=== PATIENT | female | born 1940 | race Caucasian/White ===

== ENCOUNTER → 2016-09-22 | Outpatient (CLI) | payer OTHER ==
[~2016-09-22] MED LIST: ALBU1AER9 PO; ALLO100T PO; AMOX500C3 PO; ASPCH81X PO; CLR10 PO; CRAN1CAP15 PO; FRS/80 PO; IPRASOL4 INH; LORA-741 PO; MECL1TAB42 PO; METO50TA16 PO; MULT-506 PO; NRN/300 PO; NYST100010 TOP; OMEP20CA9 PO; OXYC1TAB3 PO; OXYC7.5T78 PO; POTA-331 PO; TRAM-453 PO
--- NOTE | 2016-09-22 14:59 | DIAGNOSTIC IMAGING REPORT ---
ARTERIAL DOPPLER ULTRASOUND LOWER EXTREMITIES BILATERAL CLINICAL HISTORY: R09.89 Weak or absent pulse claudication COMPARISON STUDY: No previous studies for comparison. FINDINGS: Brachial arm systolic pressures are 153 mmHg on the right and 1 37 mmHg on the left. Posterior tibial systolic pressures are 160 mmHg in the right and 1 to 55 mmHg in the left. Dorsalis pedis systolic pressures are 171 mmHg the right and 162 mmHg on the left. This reveals normal ankle arm indices of 1.1 bilaterally. On the right there is triphasic flow within the common femoral artery. There is biphasic flow within the superficial femoral artery. There is biphasic flow within the right popliteal artery. There is triphasic flow within the anterior tibial, and biphasic flow within the posterior tibial, and monophasic flow within the peroneal. On the left there is triphasic flow within the common femoral superficial femoral and popliteal arteries. There is biphasic flow within the anterior tibial posterior tibial and peroneal arteries. No high velocity jets are visualized. IMPRESSION: No ultrasonographic evidence of lower extremity arterial stenosis. Ankle arm indices of 1.1 bilaterally. Electronically signed by: Se Mesa M.D. 09/22/2016 2:57 PM Dictated Date/Time: 09/22/2016 2:49 PM
== END | disposition home or self-care (01) ==
LOC: C.ULTR 13:04
PROVIDERS: ATTEND Internal Medicine
DX: R09.89 Other specified symptoms and signs involving the circulatory and respiratory systems (principal)

== ENCOUNTER → 2017-04-26 | Outpatient (CLI) | payer OTHER ==
[2017-04-26 17:23] LABS: HEMATOCRIT 39.4 % (37-47); MEAN CELL VOLUME 92.9 fL (80-100); MEAN CORPUSCULAR HEMOGLOBIN 30.7 pg (25-34); MEAN PLATELET VOLUME 10.2 fL (7.4-10.4); PLATELET COUNT 123 K/uL (130-400); RED BLOOD COUNT 4.24 M/uL (4.2-5.4); WHITE BLOOD COUNT 6.97 K/uL (4.8-10.8)
[2017-04-26 17:43] LABS: ALT/SGPT 22 U/L (12-78); BLOOD UREA NITROGEN 25 mg/dl (7-18); BUN/CREATININE RATIO 18.8 (10-20); CALCIUM 9.2 mg/dl (8.5-10.1); CARBON DIOXIDE 29 mmol/L (21-32); CHLORIDE 105 mmol/L (98-107); CHOLESTEROL 196 mg/dl (0-200); GLUCOSE 88 mg/dl (70-99); POTASSIUM 4.3 mmol/L (3.5-5.1); SODIUM 141 mmol/L (136-145); URIC ACID 5.1 mg/dl (2.6-7.2)
[2017-04-26 17:54] LABS: ALB/GLOB RATIO 1.2 (0.9-2); ALKALINE PHOSPHATASE 89 U/L (45-117); AST/SGOT 29 U/L (15-37); CHOLESTEROL/HDL RATIO 3.2; HDL CHOLESTEROL 61 mg/dl; LDL CHOLESTEROL CALCULATED 110 mg/dl; TRIGLYCERIDES 127 mg/dl (0-150); VERY LOW DENSITY LIPOPROT CALC 25 mg/dl
[2017-04-27 07:09] LABS: ESTIMATED AVERAGE GLUCOSE 105 mg/dl; HA1C FLAG Normal (Normal)
== END | disposition home or self-care (01) ==
LOC: C.LABBFT 13:25
PROVIDERS: ATTEND Internal Medicine
DX: M10.9 Gout, unspecified (principal); E55.9 Vitamin D deficiency, unspecified; I38 Endocarditis, valve unspecified; I48.91 Unspecified atrial fibrillation; R73.01 Impaired fasting glucose

== ENCOUNTER → 2017-05-11 | Outpatient (CLI) | payer OTHER ==
[2017-05-11 17:26] LABS: HEMATOCRIT 39.8 % (37-47); MEAN CELL VOLUME 91.7 fL (80-100); MEAN CORPUSCULAR HEMOGLOBIN 30.2 pg (25-34); MEAN CORPUSCULAR HGB CONC 32.9 g/dl (32-36); MEAN PLATELET VOLUME 9.5 fL (7.4-10.4); PLATELET COUNT 160 K/uL (130-400); RED BLOOD COUNT 4.34 M/uL (4.2-5.4); WHITE BLOOD COUNT 8.44 K/uL (4.8-10.8)
== END | disposition home or self-care (01) ==
LOC: C.LABPVFM 14:43
PROVIDERS: ATTEND Physician Assistant Medical
DX: D69.6 Thrombocytopenia, unspecified (principal)

== ENCOUNTER → 2017-11-12 | Outpatient (CLI) | payer OTHER ==
[2017-11-12 12:33] LABS: BASO % 0.3 %; BASO ABS # 0.02 K/uL (0-0.2); EOS % 2.4 %; EOS ABS # 0.19 K/uL (0-0.5); HEMATOCRIT 42.3 % (37-47); HEMOGLOBIN 13.7 g/dL (12.0-16.0); IG# 0.02 K/uL (0.00-0.02); LYMPH ABS # 3.12 K/uL (1.2-3.4); MEAN CELL VOLUME 93.4 fL (80-100); MEAN CORPUSCULAR HEMOGLOBIN 30.2 pg (25-34); MEAN CORPUSCULAR HGB CONC 32.4 g/dl (32-36); MEAN PLATELET VOLUME 9.6 fL (7.4-10.4); MONO % 10.4 %; MONO ABS # 0.83 K/uL (0.11-0.59); NEUT % 47.6 %; NEUT ABS # 3.81 K/uL (1.4-6.5); PLATELET COUNT 158 K/uL (130-400); RED CELL DISTRIBUTION WIDTH CV 14.3 % (11.5-14.5); RED CELL DISTRIBUTION WIDTH SD 48.4 fL (36.4-46.3); WHITE BLOOD COUNT 7.99 K/uL (4.8-10.8)
[2017-11-12 13:17] LABS: ALBUMIN 4.1 gm/dl (3.4-5.0); ALT/SGPT 32 U/L (12-78); AST/SGOT 29 U/L (15-37); BLOOD UREA NITROGEN 25 mg/dl (7-18); CALCIUM 8.9 mg/dl (8.5-10.1); CARBON DIOXIDE 27 mmol/L (21-32); CHOLESTEROL 148 mg/dl (0-200); CREATININE 1.24 mg/dl (0.60-1.20); GLUCOSE 103 mg/dl (70-99); POTASSIUM 3.6 mmol/L (3.5-5.1); SODIUM 140 mmol/L (136-145)
[2017-11-12 13:28] LABS: ALKALINE PHOSPHATASE 99 U/L (45-117); LDL CHOLESTEROL CALCULATED 63 mg/dl; TOTAL PROTEIN 7.2 gm/dl (6.4-8.2)
[2017-11-12 13:33] LABS: HEMOGLOBIN A1C 5.6 % (4.5-5.6)
== END | disposition home or self-care (01) ==
LOC: C.LABPVFM 18:23
PROVIDERS: ATTEND Internal Medicine
DX: E55.9 Vitamin D deficiency, unspecified (principal); R73.01 Impaired fasting glucose; E78.5 Hyperlipidemia, unspecified; I10 Essential (primary) hypertension

== ENCOUNTER 2021-07-05 16:06 | Inpatient (IN) ==
--- NOTE | 2021-07-05 18:09 | Emergency Department Note ---
Impression & Plan CHF (congestive heart failure), Leg swelling, Localized swelling of both lower legs ED Provider Note NAME: CHARLOTTE WHITTEN AGE: 81 SEX: F : 1940 ARRIVES VIA: Walk-In INFORMANT: Patient, ED PROVIDER(S): Saji Chavez MD Chief Complaint: Bilateral leg swelling HPI: Patient does present with concern for bilateral leg swelling which appears to be worsened over the last several days but has been ongoing for several weeks. The patient does follow with Dr. Anand as well as Andree lane with cardiology. They called and stated the patient did have the worsening leg swelling and they were to stop their Lasix and to be started on Bumex. The patient did take her furosemide today but is not picked up the Bumex. Patient denies any current chest pains or shortness of breath. Patient is a non-smoker. No prior history of DVT or PE. Patient has had some weeping from the bilateral lower extremities. The son at bedside states that he believes that her weight has continued to trend down for the last several weeks but seem to be approximate pound today. The patient does primarily sit in a lift chair all day as the patient is unable to lie flat secondary to history of a bad back. She does seem to sit more upright and is unsure as to whether not laying back may cause some increasing shortness of breath. Patient denies any fevers or chills. Patient has any chest pains or active shortness of breath. Patient is vaccinated for COVID-19. They were referred here into the department today by cardiology for likely IV diuretics. ROS: See HPI for pertinent positives and negatives. A total of 10 systems were reviewed and otherwise negative. Past medical history: See below Surgical history: See below Social history: See below Physical Exam: GENERAL: NAD, wearing glasses, wearing a mask, non-toxic. Hard of hearing. EYE EXAM: Normal conjunctiva. PERRL, no anisocoria and EOM's grossly intact w/o pain. NECK: Supple, no nuchal rigidity, no adenopathy, non-tender. No signs of meningismus. LUNGS: Clear to auscultation. Normal chest wall mechanics. HEART: Irregularly irregular, systolic ejection murmur noted. ABDOMEN: Abdomen soft, non-tender, normo-active bowel sounds, no masses, no re bound or guarding. BACK: No CVA TTP. SKIN: No rashes and no bruising. UPPER EXTREMITIES: Upper extremities are grossly normal. LOWER EXTREMITIES: Grossly normal, 1-2+ bilateral lower extremity edema with bandage over left lateral and right medial lower extremities, no cellulitic changes or fluctuance or crepitus. Compartments are soft neurovascular intact distally. NEURO EXAM: A&O x3, cranial nerves II-XII grossly intact, normal speech, moves all 4 extremities on command w/o issue. Differential diagnoses: Reactive airway disease, pneumonia, pneumothorax, COPD, CHF, infections, cardiac ischemia, pulmonary embolism, musculoskeletal, gastrointestinal, as well as other pathologies. Course: Patient was seen and evaluated the bedside. Full history physical exam was performed. EKG interpreted by me Dawson erazo, rate of 76 intermittent pacer spikes, left axis deviation, left bundle branch block. No other sgarbossa criteria. Imaging Studies: See Below Cardiac monitoring: An order was placed for continuous cardiac monitoring. The monitor shows a rate of 75 with irregular irregular rhythm. MDM: Patient was seen due to concern for worsening leg swelling. The patient may have an element of orthopnea as the patient is unable to tolerate laying flat even in her chair. Blood work shows a normal white count and hemoglobin. The patient does have thrombocytopenia. Kidney function is at 2.7. This is at virtual baseline. Patient's magnesium is slightly low. Bilirubin is slightly elevated. BNP is elevated. The patient was ordered 2 of Bumex and Vivas catheter. I did inform the patient and her son with the plan of care. I did speak the on-call hospitalist and the patient was admitted to the medicine service the patient was admitted by Dr. Styles. 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 Brother Myocardial infarction Father Myocardial infarction Other No family history of adverse response to anesthesia No family history of bleeding disorder Denies family history of Ovarian cancer Prostate cancer Breast cancer Colorectal cancer Social History Smoking Status: Never smoker Second Hand Exposure: No; Hx Alcohol Use: No Hx Substance Use: No Preferred Language: Swazi Communication Ability: Effective Visual Impairment: No Limitations Hearing Ability: Use of Hearing Aid Press Writer Required: No Beliefs That Will Affect Care: None marital status: Current Living Situation: Alone current occupational status: retired current occupation: was a homemaker Feels Safe at Home: Yes Childhood Exposure to Second-Hand Smoke: No Dental Care, Regularly: No Physical Activity Frequency: Does not Exercise Seatbelt Use: never Sunscreen Use: No Assistive Devices: Cane, Denture - Upper, Denture - Lower and Glasses Allergies Allergies Allergy/AdvReac Type Severity Reaction Status Date / Time erythromycin base Allergy Mild Unknown Verified 06/15/21 14:14 doxycycline Allergy Unknown Unknown Verified 06/15/21 14:14 amoxicillin Allergy Verified 06/15/21 14:14 pregabalin [From Lyrica] Allergy Visual Verified 06/15/21 14:14 disturbance Home Meds Home Medications Medication Instructions Recorded Confirmed atorvastatin 40 mg tablet 40 mg PO QPM 04/25/18 07/05/21 allopurinol 100 mg tablet 200 mg PO QAM 07/05/21 07/05/21 cetirizine 10 mg tablet (Zyrtec) 10 mg PO DAILY 07/05/21 07/05/21 omeprazole 20 mg capsule,delayed 20 mg PO QAM 07/05/21 07/05/21 release potassium chloride 10 mEq 20 meq PO BID 07/05/21 07/05/21 tablet,extended release (Klor-Con) Previous Rx's Medication Instructions Recorded baclofen 10 mg tablet 10 mg PO TID PRN #30 tab 06/07/20 tramadol 50 mg tablet 50 mg PO TID PRN #120 tab 10/08/20 ergocalciferol (vitamin D2) 1,250 50,000 unit PO .COMPLEX #4 cap 10/21/20 mcg (50,000 unit) capsule (Vitamin D2) metoprolol tartrate 100 mg tablet 100 mg PO BID #180 tab 05/05/21 albuterol sulfate 90 mcg/actuation 2 puff INHALATION Q6H PRN #6.7 gm 05/25/21 aerosol inhaler ipratropium 0.5 mg-albuterol 3 mg 3 ml INHALATION Q8H PRN #180 ml 05/25/21 (2.5 mg base)/3 mL nebulization soln meclizine 25 mg tablet 25 mg PO TID PRN #30 tab 05/25/21 apixaban 2.5 mg tablet (Eliquis) 2.5 mg PO BID #60 tab 06/01/21 nystatin 100,000 unit/gram topical 1 applic TOPICAL TID #60 g 06/01/21 powder Hospital Bed Home[facility] ([facility] ea 06/02/21 Bed) lorazepam 0.5 mg tablet 0.5 mg PO BID PRN #60 tab 06/21/21 levofloxacin 250 mg tablet 250 mg PO Q48H 10 Days #5 tab 06/28/21 oxycodone 5 mg tablet 5 - 10 mg PO Q4H PRN #180 tab MDD 06/29/21 6 tabs in 24 hours bumetanide 2 mg tablet 4 mg PO BID #120 tab 07/05/21 Results & Data (ED) Vital Signs Vital Signs - 24 hr 07/05/21 16:17 07/05/21 18:15 07/05/21 18:17 Temperature 36.7 C Temperature Source Skin Pulse Rate 71 Pulse Rate [Apical] 67 Pulse Rhythm [Apical] Irregular Respiratory Rate 22 18 Respiratory Effort / Characteristics Non-Labored Spontaneous Respiratory Depth Normal Respiratory Pattern Regular Blood Pressure 101/62 Blood Pressure [Right Arm] 109/64 Blood Pressure Mean 75 Blood Pressure Mean [Right Arm] 79 Blood Pressure Position [Right Arm] Sitting Pulse Oximetry 96 98 94 Oxygen Delivery Method Room Air Room Air Room Air Sepsis Recent Fever Within 48 Hours No Sepsis New/Unexplained Change in Mental Status N/A Sepsis Action Taken by Nursing No Action Required 07/05/21 21:02 07/05/21 22:22 Temperature 36.8 C Temperature Source Oral Pulse Rate Pulse Rate [Apical] 71 71 Pulse Rhythm [Apical] Regular Respiratory Rate 24 21 Respiratory Effort / Characteristics Non-Labored Spontaneous Non-Labored Spontaneous Respiratory Depth Normal Normal Respiratory Pattern Regular Regular Blood Pressure Blood Pressure [Right Arm] 119/52 L 114/65 Blood Pressure Mean Blood Pressure Mean [Right Arm] 74 81 Blood Pressure Position [Right Arm] Sitting Lying Pulse Oximetry 93 94 Oxygen Delivery Method Room Air Room Air Sepsis Recent Fever Within 48 Hours Sepsis New/Unexplained Change in Mental Status Sepsis Action Taken by Halfway Medications Current Medication List: was personally reviewed by me Laboratory Data Attestation: I reviewed the patient's lab results. Result diagrams: 07/05/21 18:15 07/05/21 18:15 Lab Results 07/05/21 07/05/21 07/05/21 Range/Units 18:15 18:15 22:14 WBC 6.33 (4.8-10.8) K/uL RBC 4.06 L (4.2-5.4) M/uL Hgb 12.9 (12.0-16.0) g/dL Hct 41.2 (37-47) % MCV 101.5 H (80-100) fL MCH 31.8 (25-34) pg MCHC 31.3 L (32-36) g/dL RDW Std Deviation 59.7 H (36.4-46.3) fL RDW Coeff of Annaeblle 16.1 H (11.5-14.5) % Plt Count 76 L (130-400) K/uL MPV 10.8 H (7.4-10.4) fL Immature Gran % (Auto) 0.2 % Neut % (Auto) 65.6 % Lymph % (Auto) 21.8 % Hyde % (Auto) 10.9 % Eos % (Auto) 1.3 % Baso % (Auto) 0.2 % Neut # (Auto) 4.16 (1.4-6.5) K/uL Lymph # (Auto) 1.38 (1.2-3.4) K/uL Hyde # (Auto) 0.69 H (0.11-0.59) K/uL Eos # (Auto) 0.08 (0-0.5) K/uL Baso # (Auto) 0.01 (0-0.2) K/uL Immature Gran # (Auto) 0.01 (0.00-0.02) K/uL Platelet Estimate Decreased L (Normal) Polychromasia 1+ Ovalocytes 1+ Sodium 141 (136-145) mmol/L Potassium 3.8 (3.5-5.1) mmol/L Chloride 102 (98-107) mmol/L Carbon Dioxide 35 H (21-32) mmol/L Anion Gap 4.0 (3-11) BUN 51 H (7-18) mg/dl Creatinine 2.71 H (0.6-1.2) mg/dl Est Cr Clr Drug Dosing Not Reportable Est GFR ( Amer) 18.1 ml/min Est GFR (Non-Af Amer) 15.6 ml/min BUN/Creatinine Ratio 18.7 (10-20) Glucose 117 H (70-99) mg/dl Calcium 9.6 (8.5-10.1) mg/dl Magnesium 1.6 L (1.8-2.4) mg/dl Total Bilirubin 3.4 H (0.2-1) mg/dl AST 24 (15-37) U/L ALT 17 (12-78) Alkaline Phosphatase 100 (45-117) U/L Troponin I 0.029 (0-0.045) ng/ml NT-Pro-B Natriuret Pep 6353 H (0-1800) pg/ml Total Protein 7.2 (6.4-8.2) gm/dl Albumin 3.4 (3.4-5.0) gm/dl Globulin 3.8 (2.5-4.0) gm/dl Albumin/Globulin Ratio 0.9 (0.9-2) SARS-CoV-2, RNA, NAAT NEGATIVE (NEGATIVE) Administered Medications Discontinued Medications Bumetanide 2 mg/ Syringe 8 mls @ 4 mls/min IV ONE ONE Stop: 07/05/21 19:28 Last Admin: 07/05/21 20:54 Dose: 4 mls/min Documented by: [id number] Imaging Data Radiologist's Impression: Chest X-Ray 07/05/21 18:25 XR chest 1V portable CLINICAL HISTORY: Dyspnea COMPARISON STUDY: Chest radiograph May 28, 2021. FINDINGS: Dual lead left subclavian pacemaker, median sternotomy wires and cholecystectomy clips are noted. Moderate cardiomegaly is unchanged. No evidence for pulmonary edema. No pneumothorax is present. There is no consolidation to suggest pneumonia. There is no definite evidence for a pleural effusion. IMPRESSION: No acute cardiopulmonary findings. Cardiomegaly. ACT 112: Negative or not required by law. Electronically signed by: Xavier Terry M.D. 07/05/2021 6:44 PM Discharge Plan Visit Data Chief Complaint: Swelling/Edema to Extremity Stated Complaint: LEGS SWOLLEN, POSS FLUID IN LEGS, DR REFERRED ED Provider: Saji Chavez Discharge Problem: CHF (congestive heart failure), Leg swelling, Localized swelling of both lower legs Forms Stand Alone Forms: [employer] Prescriptions Prescriptions: No Action baclofen 10 mg tablet 10 mg PO TID PRN (Reason: leg cramping) Qty: 30 RF: 0 ergocalciferol (vitamin D2) [Vitamin D2] 1,250 mcg (50,000 unit) capsule 50,000 unit PO .COMPLEX Qty: 4 RF: 11 meclizine 25 mg tablet 25 mg PO TID PRN (Reason: dizziness) Qty: 30 RF: 1 albuterol sulfate 90 mcg/actuation HFA aerosol inhaler 2 puff INHALATION Q6H PRN (Reason: Wheezing) Qty: 6.7 RF: 3 ipratropium-albuterol 0.5 mg-3 mg(2.5 mg base)/3 mL solution for nebulization 3 ml INHALATION Q8H PRN (Reason: shortness of breath) Qty: 180 RF: 11 nystatin 100,000 unit/gram powder 1 applic topical TID Qty: 60 RF: 5 (DME) Hospital Bed Misc See Rx Instructions .Route Qty: 1 RF: 0 lorazepam 0.5 mg tablet 0.5 mg PO BID PRN (Reason: anxiety) Qty: 60 RF: 5 levofloxacin 250 mg tablet 250 mg PO Q48H 10 Days Qty: 5 RF: 0 oxycodone 5 mg tablet 5 - 10 mg PO Q4H MDD 6 tabs in 24 hours PRN (Reason: pain) Qty: 180 RF: 0 bumetanide 2 mg tablet 4 mg PO BID Qty: 120 RF: 2 Eliquis 2.5 mg tablet 2.5 mg PO BID Qty: 60 RF: 2 tramadol 50 mg tablet 50 mg PO TID PRN (Reason: pain) Qty: 120 RF: 3 metoprolol tartrate 100 mg tablet 100 mg PO BID Qty: 180 RF: 3 atorvastatin 40 mg Tablet 40 mg PO QPM RF: 0 potassium chloride [Klor-Con 10] 10 mEq tablet extended release 20 meq PO BID RF: 0 allopurinol 100 mg tablet 200 mg PO QAM RF: 0 omeprazole 20 mg capsule,delayed release(DR/EC) 20 mg PO QAM RF: 0 cetirizine [Zyrtec] 10 mg Tablet 10 mg PO DAILY RF: 0 Referrals Referrals: Ilan Elaine III, MD [Primary Care Provider] -
[2021-07-05 18:37] LABS: Hematocrit (blood only) 41.2 % (37-47); Hemoglobin 12.9 g/dL (12.0-16.0); Mean Corpuscular Hemoglobin 31.8 pg (25-34); Mean Corpuscular Hgb Conc 31.3 g/dL (32-36); Mean Corpuscular Volume 101.5 fL (80-100); RDW Coefficient of Variation 16.1 % (11.5-14.5); RDW Standard Deviation 59.7 fL (36.4-46.3); Red Blood Count 4.06 M/uL (4.2-5.4); White Blood Count 6.33 K/uL (4.8-10.8)
--- NOTE | 2021-07-05 18:45 | XRay Report ---
XR chest 1V portable CLINICAL HISTORY: Dyspnea COMPARISON STUDY: Chest radiograph May 28, 2021. FINDINGS: Dual lead left subclavian pacemaker, median sternotomy wires and cholecystectomy clips are noted. Moderate cardiomegaly is unchanged. No evidence for pulmonary edema. No pneumothorax is presen t. There is no consolidation to suggest pneumonia. There is no definite evidence for a pleural effusi on. IMPRESSION: No acute cardiopulmonary findings. Cardiomegaly. ACT 112: Negative or not required by law. Electronically signed by: Xavier Terry M.D. 07/05/2021 6:44 PM
[2021-07-05 18:54] LABS: Mean Platelet Volume 10.8 fL (7.4-10.4); Platelet Count 76 K/uL (130-400)
[2021-07-05 18:55] LABS: Basophils # (auto) 0.01 K/uL (0-0.2); Basophils % (auto) 0.2 %; Eosinophils # (auto) 0.08 K/uL (0-0.5); Eosinophils % (auto) 1.3 %; Immature Granulocytes # (auto) 0.01 K/uL (0.00-0.02); Immature Granulocytes % (auto) 0.2 %; Lymphocytes # (auto) 1.38 K/uL (1.2-3.4); Lymphocytes % (auto) 21.8 %; Monocytes # (auto) 0.69 K/uL (0.11-0.59); Monocytes % (auto) 10.9 %; Neutrophils # (auto) 4.16 K/uL (1.4-6.5); Neutrophils % (auto) 65.6 %; Ovalocytes 1+; Platelet Estimate Decreased (Normal); Polychromasia 1+
[2021-07-05 18:56] LABS: Alanine Aminotransferase 17 (12-78); Albumin Level 3.4 gm/dl (3.4-5.0); Aspartate Aminotransferase 24 U/L (15-37); BUN Creatinine Ratio 18.7 (10-20); Blood Urea Nitrogen 51 mg/dl (7-18); Calcium 9.6 mg/dl (8.5-10.1); Carbon Dioxide 35 mmol/L (21-32); Chloride 102 mmol/L (98-107); Est GFR (African American) 18.1 ml/min; Est GFR (Non-African American) 15.6 ml/min; Glucose 117 mg/dl (70-99); Magnesium 1.6 mg/dl (1.8-2.4); Potassium 3.8 mmol/L (3.5-5.1); Sodium 141 mmol/L (136-145)
[2021-07-05 19:02] LABS: Albumin Globulin Ratio 0.9 (0.9-2); Alkaline Phosphatase 100 U/L (45-117); Bilirubin,Total 3.4 mg/dl (0.2-1); Globulin 3.8 gm/dl (2.5-4.0); NT Pro B Type Natriuretic Pept 6353 pg/ml (0-1800); Total Protein 7.2 gm/dl (6.4-8.2); Troponin I 0.029 ng/ml (0-0.045)
[2021-07-05] MEDS ORDERED: BUMETANIDE 2 MG in SYRINGE 0 ML IV ONE (19:27)
--- NOTE | 2021-07-05 21:34 | History & Physical Report ---
Date of Service July 05, 2021 Assessment & Plan (1) Congestive heart failure: Plan: 81 yo F w/ pMHx. heart failure following with the heart failure clinic, HTN, HLD, valvular disease, CKD III, atrial fibrillation on Eliquis presenting with lower extremity edema. Admitted to med./surg. tele Acute exacerbation of heart failure, unclear EF, last ECHO in 2017 per HF note with severe mitral regurgitation and severe aortic insufficiency unclear etiology of exacerbation, potentially dietary indiscretion vs. progressive worsening - cardiology consulted - ECHO ordered - Bumex 2 IV BID Atrial fibrillation, rate controlled, [id number] 5+ on Eliquis - continue metoprolol Hypomagnesemia - ordered 1 gram - rechecking with AM labs Prediabetic, last a1C 5.7 in January 2020 - A1c ordered HTN continue Metoprolol HLD continue Atorvastatin DVT: Eliquis Diet: HH, low sodium Code: full code (2) CKD (chronic kidney disease), stage III: (3) Hyperlipidemia: (4) Hypertension: (5) AV block, 3rd degree: (6) Aortic stenosis: (7) Gout: (8) Prediabetes: (9) Mitral regurgitation: History of Present Illness Chief Complaint: lower extremity swelling Primary Care Provider: Ilan Elaine MD Gely Guerin has a past medical history of heart failure following with the heart failure clinic, HTN, HLD, valvular disease, CKD III, atrial fibrillation on Eliquis presenting with worsening lower extremity edema. The swelling in her lower legs have been worsening over several weeks. Her left leg has started draining 2 weeks ago and her right leg started to drain on Sunday with the left leg worsening again one day prior. She follows with the heart failure clinic and was sent in for IV diuresis. She has not had any changes in her diet lately. She notes that she has not been eating as much lately but is eating canned soup among other things. She notes that she has had trouble laying down due to trouble breathing. She did note slight blood in her sputum, no sore throat or URI symptoms. Denies fever, chills, urinary symptoms. She was on hospice, but has since been discharged and but would not like aggressive measures undertaken. Heart failure notes indicate that she has refused ECHO in the past. ED course: Bumex 2mg IV Allergies Allergy/AdvReac Type Severity Reaction Status Date / Time erythromycin base Allergy Mild Unknown Verified 06/15/21 14:14 doxycycline Allergy Unknown Unknown Verified 06/15/21 14:14 amoxicillin Allergy Verified 06/15/21 14:14 pregabalin [From Lyrica] Allergy Visual Verified 06/15/21 14:14 disturbance Home Medications Medication Instructions Recorded Confirmed Type atorvastatin 40 mg tablet 40 mg PO QPM 04/25/18 07/05/21 History tramadol 50 mg tablet 50 mg PO TID PRN #120 tab 10/08/20 07/05/21 Rx ergocalciferol (vitamin D2) 1,250 50,000 unit PO .COMPLEX #4 cap 10/21/20 07/05/21 Rx mcg (50,000 unit) capsule (Vitamin D2) metoprolol tartrate 100 mg tablet 100 mg PO BID #180 tab 05/05/21 07/05/21 Rx albuterol sulfate 90 mcg/actuation 2 puff INHALATION Q6H PRN #6.7 gm 05/25/21 07/05/21 Rx aerosol inhaler ipratropium 0.5 mg-albuterol 3 mg 3 ml INHALATION Q8H PRN #180 ml 05/25/21 07/05/21 Rx (2.5 mg base)/3 mL nebulization soln meclizine 25 mg tablet 25 mg PO TID PRN #30 tab 05/25/21 07/05/21 Rx apixaban 2.5 mg tablet (Eliquis) 2.5 mg PO BID #60 tab 06/01/21 07/05/21 Rx nystatin 100,000 unit/gram topical 1 applic TOPICAL TID #60 g 06/01/21 07/05/21 Rx powder [facility] ([facility] ea 06/02/21 07/05/21 Rx Bed) lorazepam 0.5 mg tablet 0.5 mg PO BID PRN #60 tab 06/21/21 07/05/21 Rx levofloxacin 250 mg tablet 250 mg PO Q48H 10 Days #5 tab 06/28/21 07/05/21 Rx oxycodone 5 mg tablet 5 - 10 mg PO Q4H PRN #180 tab MDD 06/29/21 07/05/21 Rx 6 tabs in 24 hours allopurinol 100 mg tablet 200 mg PO QAM 07/05/21 07/05/21 History bumetanide 2 mg tablet 4 mg PO BID #120 tab 07/05/21 07/05/21 Rx cetirizine 10 mg tablet (Zyrtec) 10 mg PO DAILY 07/05/21 07/05/21 History omeprazole 20 mg capsule,delayed 20 mg PO QAM 07/05/21 07/05/21 History release potassium chloride 10 mEq 20 meq PO BID 07/05/21 07/05/21 History tablet,extended release (Klor-Con) baclofen 10 mg tablet 10 mg PO TID PRN #30 tab 07/06/21 Rx Past Med/Surg History Medical History Cardiac murmur Chronic back pain Congestive heart failure GERD (gastroesophageal reflux disease) Hx of fracture of wrist LEFT Hyperlipidemia Hypertension 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 ear Morbid obesity Osteoarthritis Pacemaker LAST CHECK 3 MONTHS AGO Retinal artery occlusion, branch Sensorineural hearing loss of both ears SOB (shortness of breath) on exertion 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 Beliefs That Will Affect Care: None marital status: Current Living Situation: Alone Current Living Situation Comment: son lives 2 miles away current occupational status: retired current occupation: was a homemaker Feels Safe at Home: Yes Safety Concerns: Feels Safe At This Time Childhood Exposure to Second-Hand Smoke: No Dental Care, Regularly: No Physical Activity Frequency: Does not Exercise Seatbelt Use: never Sunscreen Use: No Assistive Devices: Denture - Upper, Denture - Lower, Glasses and Walker Assistive Devices Comment: hearing aides at home Review of Systems Review of Systems: Constitutional: denies fevers, chills, nausea vomiting ENT: denies rhinorrhea, stuffiness, sneezing, sore throat Pulm.: denies cough, shortness of breath admits a small volume of hemoptysis GI: denies diarrhea, constipation : denies urgency, frequency, dysuria Physical Exam Constitutional: well developed, well nourished and + edematous; no acute distress Eyes: PERRL, conjunctivae normal, anicteric sclerae ENMT: external ear and nose normal, oropharynx normal Neck: normal visual inspection Respiratory: normal respiratory effort, lungs clear to auscultation Cardiovascular: Rate/Rhythm: + irregularly irregular Extremities: + edema (significant edema with swelling, chronic venous stasis changes) Gastrointestinal (Abdomen): normal bowel sounds, soft, nontender, no hepatosplenomegaly Skin: - dark skin over the lower legs bilaterally Neurologic: no focal motor deficits Psychiatric: Orientation: alert and oriented x 3 Genitourinary: OB Exam Monitor Tracing: + variable decelerations Results & Data Results & Data ([facility]) Vital Signs (Past 12 Hours) Vital Signs Temp Pulse Pulse Resp BP BP Pulse Ox 07/05/21 21:02 71 24 119/52 L 93 07/05/21 18:17 67 18 109/64 94 07/05/21 18:15 98 07/05/21 16:17 36.7 C 71 22 101/62 96 CBC Results Results Complete Blood Count Results: RBC 3.73 M/uL (4.2-5.4) L 07/06/21 WBC 5.61 K/uL (4.8-10.8) 07/06/21 Hgb 11.6 g/dL (12.0-16.0) L 07/06/21 Hct 37.4 % (37-47) 07/06/21 Plt Count 69 K/uL (130-400) L 07/06/21 Chemistry (BMP) Results BMP Results: Sodium 144 mmol/L (136-145) 07/06/21 Potassium 3.7 mmol/L (3.5-5.1) 07/06/21 Chloride 105 mmol/L (98-107) 07/06/21 Carbon Dioxide 34 mmol/L (21-32) H 07/06/21 Anion Gap 6.0 (3-11) 07/06/21 BUN 50 mg/dl (7-18) H 07/06/21 Creatinine 2.55 mg/dl (0.6-1.2) H 07/06/21 Glucose 112 mg/dl (70-99) H 07/06/21 Code Status & VTE Plan VTE Prophylaxis Plan VTE Prophylaxis will be ordered: Yes Supervising Physician Co-Signing Physician Notes Attending addendum: I have physically seen this patient, have supervised the medical residents activities, and agree with the H&P unless as otherwise noted. Assessment and Plan: CHF exacerbation/atrial fibrillation/hypertension The patient will be admitted to telemetry for serial cardiac enzymes, serial EKG's, cardiac rhythm monitoring and a 2-D echocardiogram with Dopplers. Hold oral Bumex Bumex 2 mg IV twice daily Serial CBC with differential, chemistry profile and magnesium levels Continue apixaban, metoprolol tartrate and potassium chloride Remaining orders and notations as noted Resident Activity Tracking Resident Involvement: Resident Care Provided Care Provided: Adult [facility]
[2021-07-05] MEDS ORDERED: POLYETHYLENE (MIRALAX) 17 GM PACK PO PRN (23:39)
[2021-07-05] MEDS ORDERED: ALBUT/IPRATROP 3MG/0.5MG NEB 3 ML VIAL INH PRN (23:39)
[2021-07-05] MEDS ORDERED: ALBUTEROL HFA 8 GM INHALER INH PRN (23:39)
[2021-07-06] MEDS ORDERED: MAGNESIUM SULFATE / D5W 1 GM/100 ML BAG IV ONE (00:14)
[2021-07-06] MEDS: APIXABAN 2.5 MG TAB PO SCH ×3 (00:20→20:58)
[2021-07-06] MEDS: POTASSIUM CHLORIDE CRTAB 20 MEQ TABCR PO SCH ×3 (00:20→20:58)
[2021-07-06] MEDS: METOPROLOL TARTRATE 100 MG TAB PO SCH ×3 (00:20→21:02)
[2021-07-06] MEDS: ATORVASTATIN 40 MG TAB PO SCH ×2 (00:20→20:59)
[2021-07-06] MEDS: oxyCODONE HCL IR 5 MG TAB (IMMEDIATE RELEASE) PO PRN ×3 (04:35→17:42)
[2021-07-06 07:08] LABS: Hematocrit (blood only) 37.4 % (37-47); Hemoglobin 11.6 g/dL (12.0-16.0); Mean Corpuscular Hemoglobin 31.1 pg (25-34); Mean Corpuscular Volume 100.3 fL (80-100); RDW Coefficient of Variation 16.1 % (11.5-14.5); RDW Standard Deviation 59.5 fL (36.4-46.3); Red Blood Count 3.73 M/uL (4.2-5.4); White Blood Count 5.61 K/uL (4.8-10.8)
[2021-07-06 07:26] LABS: Mean Platelet Volume 10.2 fL (7.4-10.4); Platelet Count 69 K/uL (130-400)
[2021-07-06 07:27] LABS: BUN Creatinine Ratio 19.8 (10-20); Calcium 8.9 mg/dl (8.5-10.1); Est GFR (African American) 19.5 ml/min; Est GFR (Non-African American) 16.8 ml/min; Magnesium 1.8 mg/dl (1.8-2.4); Potassium 3.7 mmol/L (3.5-5.1)
[2021-07-06 07:32] LABS: Troponin I 0.044 ng/ml (0-0.045)
[2021-07-06 07:41] LABS: Acanthocytes 1+; Basophils # (auto) 0.01 K/uL (0-0.2); Basophils % (auto) 0.2 %; Eosinophils # (auto) 0.07 K/uL (0-0.5); Eosinophils % (auto) 1.2 %; Immature Granulocytes # (auto) 0.01 K/uL (0.00-0.02); Immature Granulocytes % (auto) 0.2 %; Lymphocytes # (auto) 1.19 K/uL (1.2-3.4); Lymphocytes % (auto) 21.2 %; Monocytes # (auto) 0.59 K/uL (0.11-0.59); Monocytes % (auto) 10.5 %; Neutrophils # (auto) 3.74 K/uL (1.4-6.5); Neutrophils % (auto) 66.7 %; Ovalocytes 2+
[2021-07-06] MEDS: BUMETANIDE 2 MG in SYRINGE 0 ML IV SCH ×2 (08:12→17:42)
[2021-07-06] MEDS: allopurinoL 100 MG TAB PO SCH (08:13)
[2021-07-06] MEDS: CETIRIZINE HCL 10 MG TABLET PO SCH (08:13)
[2021-07-06] MEDS: PANTOprazole 40 MG TAB PO SCH (08:13)
--- NOTE | 2021-07-06 09:48 | Cardiology Consultation ---
Date of Consultation July 06, 2021 Assessment & Plan (1) Severe mitral valve regurgitation: Mrs. 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 Her last Echocardiogram in 2016 showed degeneration of her bioprosthetic valves resulting in Severe Mitral Regurgitation and Severe Aortic Insufficiency -- and the patient and her family wanted to avoid repeat valve surgery and manage her cardiac conditions conservatively with medical management. Patient presented to [facility] ER on the evening of 07/05/21 complaining of progressive LE edema over the past several weeks. The edema was bad enough that her left leg began weeping about 2 weeks ago and her right leg began weeping at the end of last week. She has not had any fever or chills. She contacted the [facility] who recommended changing from Lasix to Bumex but she did not pick her Rx up from the pharmacy before coming to the hospital. She is currently an admitted inpatient. Her breathing has been at baseline and she denies any recent SOB, unusual dyspnea on exertion, orthopnea or any PND -- but she generally spends the majority of her time in a recliner because of her lumbar spinal stenosis and therefore doesn't typically lie down to sleep. She thinks her weight has been coming down. Her appetite has been less recently, but she has been eating canned soups. Her work-up shows an elevated Pro-BNP of 6353 pg/mL. CXR on 07/05/21 showed cardiomegaly without acute cardiopulmonary processes. She is anemic with a Hgb of 11.6 g/dL, normal WBC count. Creatinine on admission was 2.71 mg/dL but is down to 2.55 mg/dL today. BUN today is 50. Patient is being treated with IV Bumex 2 mg b.i.d. and she has a negative fluid balance of 520 mL so far. Echocardiogram has been ordered by the hospitalist service. Recommend the followin. Continue diuresing with IV Bumex 2 mg b.i.d. 2. Monitor renal function closely. 3. Closely monitor I&O's, daily body weights. 4. Continue Lopressor 100 mg b.i.d.. 5. Continue Potassium Chloride 20 mEq b.i.d.. 6. Echocardiogram has been ordered to evaluate LV and RV systolic function and to assess valvular heart disease -- although patient wants conservative management of valvular disease. 7. 2 gram low sodium diet. (2) Severe aortic insufficiency: --Manage as outlined above. (3) CHF (congestive heart failure): --Manage as outlined above. (4) Leg swelling: Secondary to CHF and chronic venous insufficiency. -- Continue to diurese. -- Elevate legs. -- Would likely benefit with compression. (5) Atrial fibrillation, permanent: Patient is in permanent A-fib but her heart rate is very well controlled. She has no symptoms attributable to her A-fib. Her [id number] is 7. -- Continue Lopressor 100 mg b.i.d.. -- Continue Eliquis 2.5 mg b.i.d.. (6) LBBB (left bundle branch block): -- History of intermittent LBBB over the years. 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 -- Pacer is programmed to VVIR. -- Last device interrogation was done on 06/01/21. (8) AV block, 3rd degree: Patient has a permanent dual chamber pacemaker. -- Pacer is programmed to VVIR. -- Last device interrogation was done on 06/01/21. History of Present Illness Reason for Consultation: -- CHF Exacerbation. Requesting Physician: Kathleen Jerry MD Attending Physician: Pierre Dennis MD History of Present Illness Mrs. 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 Her last Echocardiogram in 2017 showed degeneration of her bioprosthetic valves resulting in Severe Mitral Regurgitation and Severe Aortic Insufficiency -- and the patient and her family wanted to avoid repeat valve surgery and manage her cardiac conditions conservatively with medical management. Patient presented to [facility] ER on the evening of 07/05/21 complaining of progressive LE edema over the past several weeks. The edema was bad enough that her left leg began weeping about 2 weeks ago and her right leg began weeping at the end of last week. She has not had any fever or chills. She contacted the [facility] who recommended changing from Lasix to Bumex but she did not pick her Rx up from the pharmacy before coming to the hospital. She is currently an admitted inpatient. Patient states that she is otherwise doing well. Her breathing has been at baseline and she denies any recent SOB, unusual dyspnea on exertion, orthopnea or any PND -- but she generally spends the majority of her time in a recliner because of her lumbar spinal stenosis and therefore doesn't typically lie down to sleep. She thinks her weight has been coming down. Her appetite has been less recently, but she has been eating canned soups. She denies any exertional chest pain, heaviness, tightness, pressure, or discomfort. She denies any exertional neck, jaw, back, or arm pain. She does not experience any symptoms from her A-Fib. She denies any palpitations, syncope, or near syncope. Her work-up shows an elevated Pro-BNP of 6353 pg/mL. CXR on 07/05/21 showed cardiomegaly without acute cardiopulmonary processes. She is anemic with a Hgb of 11.6 g/dL, normal WBC count. Creatinine on admission was 2.71 mg/dL but is down to 2.55 mg/dL today. BUN today is 50. Patient is being treated with IV Bumex 2 mg b.i.d. and she has a negative fluid balance of 520 mL. Allergies Allergy/AdvReac Type Severity Reaction Status Date / Time erythromycin base Allergy Mild Unknown Verified 06/15/21 14:14 doxycycline Allergy Unknown Unknown Verified 06/15/21 14:14 amoxicillin Allergy Verified 06/15/21 14:14 pregabalin [From Lyrica] Allergy Visual Verified 06/15/21 14:14 disturbance Home Medications Medication Instructions Recorded Confirmed Type atorvastatin 40 mg tablet 40 mg PO QPM 04/25/18 07/05/21 History tramadol 50 mg tablet 50 mg PO TID PRN #120 tab 10/08/20 07/05/21 Rx ergocalciferol (vitamin D2) 1,250 50,000 unit PO .COMPLEX #4 cap 10/21/20 07/05/21 Rx mcg (50,000 unit) capsule (Vitamin D2) metoprolol tartrate 100 mg tablet 100 mg PO BID #180 tab 05/05/21 07/05/21 Rx albuterol sulfate 90 mcg/actuation 2 puff INHALATION Q6H PRN #6.7 gm 05/25/21 07/05/21 Rx aerosol inhaler ipratropium 0.5 mg-albuterol 3 mg 3 ml INHALATION Q8H PRN #180 ml 05/25/21 07/05/21 Rx (2.5 mg base)/3 mL nebulization soln meclizine 25 mg tablet 25 mg PO TID PRN #30 tab 05/25/21 07/05/21 Rx apixaban 2.5 mg tablet (Eliquis) 2.5 mg PO BID #60 tab 06/01/21 07/05/21 Rx nystatin 100,000 unit/gram topical 1 applic TOPICAL TID #60 g 06/01/21 07/05/21 Rx powder Hospital Bed Homecare (Hospital [facility]1 ea 06/02/21 07/05/21 Rx Bed) lorazepam 0.5 mg tablet 0.5 mg PO BID PRN #60 tab 06/21/21 07/05/21 Rx levofloxacin 250 mg tablet 250 mg PO Q48H 10 Days #5 tab 06/28/21 07/05/21 Rx oxycodone 5 mg tablet 5 - 10 mg PO Q4H PRN #180 tab MDD 06/29/21 07/05/21 Rx 6 tabs in 24 hours allopurinol 100 mg tablet 200 mg PO QAM 07/05/21 07/05/21 History bumetanide 2 mg tablet 4 mg PO BID #120 tab 07/05/21 07/05/21 Rx cetirizine 10 mg tablet (Zyrtec) 10 mg PO DAILY 07/05/21 07/05/21 History omeprazole 20 mg capsule,delayed 20 mg PO QAM 07/05/21 07/05/21 History release potassium chloride 10 mEq 20 meq PO BID 07/05/21 07/05/21 History tablet,extended release (Klor-Con) baclofen 10 mg tablet 10 mg PO TID PRN #30 tab 07/06/21 Rx Patient History Medical History Cardiac murmur Chronic back pain Congestive heart failure GERD (gastroesophageal reflux disease) Hx of fracture of wrist LEFT Hyperlipidemia Hypertension 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 ear Morbid obesity Osteoarthritis Pacemaker LAST CHECK 3 MONTHS AGO Retinal artery occlusion, branch Sensorineural hearing loss of both ears SOB (shortness of breath) on exertion 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 Brother Myocardial infarction Father Myocardial infarction Other No family history of adverse response to anesthesia No family history of bleeding disorder Denies family history of Ovarian cancer Prostate cancer Breast cancer Colorectal cancer Social History Smoking Status: Never smoker Second Hand Exposure: No; Hx Alcohol Use: No Hx Substance Use: No Preferred Language: Bahraini Communication Ability: Effective Communication Ability Comment: hard of hearing Visual Impairment: No Limitations Hearing Ability: Use of Hearing Aid Mine Technician Required: No Beliefs That Will Affect Care: None marital status: Current Living Situation: Alone Current Living Situation Comment: son lives 2 miles away current occupational status: retired current occupation: was a homemaker Feels Safe at Home: Yes Safety Concerns: Feels Safe At This Time Childhood Exposure to Second-Hand Smoke: No Dental Care, Regularly: No Physical Activity Frequency: Does not Exercise Seatbelt Use: never Sunscreen Use: No Assistive Devices: Oxygen - Continuous Assistive Devices Comment: hearing aides at home Physical Exam Physical Exam: GENERAL: Patient in no acute distress. HEENT: Head is atraumatic, normocephalic. EOM's intact. Facies symmetric. No perioral cyanosis. NECK: No JVD. JVP is slightly elevated. Carotid upstrokes are + 2 bilaterally. CHEST/LUNGS: Clear to auscultation throughout all lung orozco. No wheezes, rales, or crackles. CVS: S1 and S2 are irregularly irregular at 76 bpm with a grade 2/6 apical holosystolic murmur and a decrescendo murmur along the left upper sternal border. PMI is nonpalpable. No lifts, heaves, or thrills. No abdominal aortic or renal bruits. ABDOMINAL EXAM: Bowel sounds are present. No masses, organomegaly, or tender ness. EXTREMITIES: No clubbing or cyanosis. Significant L>R bilateral lower extremity edema to the knees. Chronic venous stasis changes - legs are dressed. Intact radial pulses bilaterally. NEUROLOGIC EXAM: Patient is awake, alert, and oriented. Pleasant and cooperative. Answers questions appropriately. Speech is clear. INTERNET SALES MANAGER: -- Atrial fibrillation with V-rates in the 70's and an IVCD. EKG 07/05/21: -- A-fib with controlled V rate, LBBB, and left axis deviation. Results & Data ([facility]) Vital Signs (Past 12 Hours) Vital Signs Temp Pulse Resp BP Pulse Ox Pulse Ox 07/06/21 06:53 36.7 C 74 20 128/59 L 92 07/06/21 06:28 79 20 106/56 L 90 07/06/21 01:58 68 20 134/55 L 93 07/06/21 00:04 66 20 123/68 92 07/05/21 23:39 91 07/05/21 22:22 36.8 C 71 21 114/65 94 Laboratory Results Laboratory Results - last 24 hr 07/05/21 07/05/21 07/05/21 18:15 18:15 22:14 WBC 6.33 RBC 4.06 L Hgb 12.9 Hct 41.2 MCV 101.5 H MCH 31.8 MCHC 31.3 L RDW Std Deviation 59.7 H RDW Coeff of Annabelle 16.1 H Plt Count 76 L MPV 10.8 H Immature Gran % (Auto) 0.2 Neut % (Auto) 65.6 Lymph % (Auto) 21.8 Scott % (Auto) 10.9 Eos % (Auto) 1.3 Baso % (Auto) 0.2 Neut # (Auto) 4.16 Lymph # (Auto) 1.38 Scott # (Auto) 0.69 H Eos # (Auto) 0.08 Baso # (Auto) 0.01 Immature Gran # (Auto) 0.01 Platelet Estimate Decreased L Polychromasia 1+ Ovalocytes 1+ Acanthocytes (Spur) Sodium 141 Potassium 3.8 Chloride 102 Carbon Dioxide 35 H Anion Gap 4.0 BUN 51 H Creatinine 2.71 H Est Cr Clr Drug Dosing Not Reportable Est GFR ( Amer) 18.1 Est GFR (Non-Af Amer) 15.6 BUN/Creatinine Ratio 18.7 Glucose 117 H Calcium 9.6 Magnesium 1.6 L Total Bilirubin 3.4 H AST 24 ALT 17 Alkaline Phosphatase 100 Troponin I 0.029 NT-Pro-B Natriuret Pep 6353 H Total Protein 7.2 Albumin 3.4 Globulin 3.8 Albumin/Globulin Ratio 0.9 SARS-CoV-2, RNA, NAAT NEGATIVE 07/06/21 07/06/21 07/06/21 00:38 07:01 07:01 WBC 5.61 RBC 3.73 L Hgb 11.6 L Hct 37.4 MCV 100.3 H MCH 31.1 MCHC 31.0 L RDW Std Deviation 59.5 H RDW Coeff of Annabelle 16.1 H Plt Count 69 L MPV 10.2 Immature Gran % (Auto) 0.2 Neut % (Auto) 66.7 Lymph % (Auto) 21.2 Scott % (Auto) 10.5 Eos % (Auto) 1.2 Baso % (Auto) 0.2 Neut # (Auto) 3.74 Lymph # (Auto) 1.19 L Scott # (Auto) 0.59 Eos # (Auto) 0.07 Baso # (Auto) 0.01 Immature Gran # (Auto) 0.01 Platelet Estimate Polychromasia Ovalocytes 2+ Acanthocytes (Spur) 1+ Sodium Potassium Chloride Carbon Dioxide Anion Gap BUN Creatinine Est Cr Clr Drug Dosing Est GFR ( Amer) Est GFR (Non-Af Amer) BUN/Creatinine Ratio Glucose Calcium Magnesium Total Bilirubin AST ALT Alkaline Phosphatase Troponin I 0.036 Cancelled NT-Pro-B Natriuret Pep Total Protein Albumin Globulin Albumin/Globulin Ratio SARS-CoV-2, RNA, NAAT 07/06/21 07:01 WBC RBC Hgb Hct MCV MCH MCHC RDW Std Deviation RDW Coeff of Annabelle Plt Count MPV Immature Gran % (Auto) Neut % (Auto) Lymph % (Auto) Scott % (Auto) Eos % (Auto) Baso % (Auto) Neut # (Auto) Lymph # (Auto) Scott # (Auto) Eos # (Auto) Baso # (Auto) Immature Gran # (Auto) Platelet Estimate Polychromasia Ovalocytes Acanthocytes (Spur) Sodium 144 Potassium 3.7 Chloride 105 Carbon Dioxide 34 H Anion Gap 6.0 BUN 50 H Creatinine 2.55 H Est Cr Clr Drug Dosing 18.0 Est GFR ( Amer) 19.5 Est GFR (Non-Af Amer) 16.8 BUN/Creatinine Ratio 19.8 Glucose 112 H Calcium 8.9 Magnesium 1.8 Total Bilirubin AST ALT Alkaline Phosphatase Troponin I 0.044 NT-Pro-B Natriuret Pep Total Protein Albumin Globulin Albumin/Globulin Ratio SARS-CoV-2, RNA, NAAT Diagnostic Findings CXR 07/05/21: FINDINGS: Dual lead left subclavian pacemaker, median sternotomy wires and cholecystectomy clips are noted. Moderate cardiomegaly is unchanged. No evidence for pulmonary edema. No pneumothorax is present. There is no consolidation to suggest pneumonia. There is no definite evidence for a pleural effusion. IMPRESSION: No acute cardiopulmonary findings. Cardiomegaly. Medications Administered Medications atorvastatin 40 mg tablet 40 mg PO QPM 04/25/18 [History Confirmed 07/05/21] tramadol 50 mg tablet 50 mg PO TID PRN #120 tab 10/08/20 [Rx Confirmed 07/05/21] ergocalciferol (vitamin D2) 1,250 mcg (50,000 unit) capsule (Vitamin D2) 50,000 unit PO .COMPLEX #4 cap 10/21/20 [Rx Confirmed 07/05/21] metoprolol tartrate 100 mg tablet 100 mg PO BID #180 tab 05/05/21 [Rx Confirmed 07/05/21] albuterol sulfate 90 mcg/actuation aerosol inhaler 2 puff INHALATION Q6H PRN #6 .7 gm 05/25/21 [Rx Confirmed 07/05/21] ipratropium 0.5 mg-albuterol 3 mg (2.5 mg base)/3 mL nebulization soln 3 ml INHALATION Q8H PRN #180 ml 05/25/21 [Rx Confirmed 07/05/21] meclizine 25 mg tablet 25 mg PO TID PRN #30 tab 05/25/21 [Rx Confirmed 07/05/21] apixaban 2.5 mg tablet (Eliquis) 2.5 mg PO BID #60 tab 06/01/21 [Rx Confirmed 07/05/21] nystatin 100,000 unit/gram topical powder 1 applic TOPICAL TID #60 g 06/01/21 [Rx Confirmed 07/05/21] Hospital Bed Homecare (Hospital Bed) #1 ea 06/02/21 [Rx Confirmed 07/05/21] lorazepam 0.5 mg tablet 0.5 mg PO BID PRN #60 tab 06/21/21 [Rx Confirmed 07/05] levofloxacin 250 mg tablet 250 mg PO Q48H 10 Days #5 tab 06/28/21 [Rx Confirmed 07/05/21] oxycodone 5 mg tablet 5 - 10 mg PO Q4H PRN #180 tab MDD 6 tabs in 24 hours 06/29/21 [Rx Confirmed 07/05/21] allopurinol 100 mg tablet 200 mg PO QAM 07/05/21 [History Confirmed 07/05/21] bumetanide 2 mg tablet 4 mg PO BID #120 tab 07/05/21 [Rx Confirmed 07/05/21] cetirizine 10 mg tablet (Zyrtec) 10 mg PO DAILY 07/05/21 [History Confirmed 07/05/21] omeprazole 20 mg capsule,delayed release 20 mg PO QAM 07/05/21 [History Confirmed 07/05/21] potassium chloride 10 mEq tablet,extended release (Klor-Con) 20 meq PO BID 07/05/21 [History Confirmed 07/05/21] baclofen 10 mg tablet 10 mg PO TID PRN #30 tab 07/06/21 [Rx] Home Medications Acetaminophen (Acetaminophen 325 Mg Tab) 650 mg PO Q4H PRN PRN Reason: Pain or Fever Stop: 08/04/21 23:38 Albuterol (Albuterol Hfa 8 Gm Inhaler) 2 puffs INH Q6H PRN PRN Reason: Wheezing Stop: 08/04/21 23:38 Albuterol (Albut/Ipratrop 3mg/0.5mg Neb 3 Ml Vial) 3 ml INH Q8H PRN PRN Reason: shortness of breath Stop: 08/04/21 23:38 Allopurinol (Allopurinol 100 Mg Tab) 200 mg PO QAM [facility] Stop: 08/05/21 08:59 Last Admin: 07/06/21 08:13 Dose: 200 mg Documented by: Apixaban (Apixaban 2.5 Mg Tab) 2.5 mg PO BID [facility] Stop: 08/04/21 23:38 Last Admin: 07/06/21 08:13 Dose: 2.5 mg Documented by: Atorvastatin Calcium (Atorvastatin 40 Mg Tab) 40 mg PO QPM [facility] Stop: 08/04/21 23:38 Last Admin: 07/06/21 00:20 Dose: 40 mg Documented by: Baclofen (Baclofen 10 Mg Tab) 10 mg PO TID PRN PRN Reason: leg cramping Stop: 08/04/21 23:38 Cetirizine HCl (Cetirizine Hcl 10 Mg Tablet) 10 mg PO DAILY [facility] Stop: 08/05/21 08:59 Last Admin: 07/06/21 08:13 Dose: 10 mg Documented by: Bumetanide 2 mg/ Syringe 8 mls @ 4 mls/min IV BID@0900,1700 [facility] Stop: 08/05/21 08:59 Last Admin: 07/06/21 08:12 Dose: 4 mls/min Documented by: Lorazepam (Lorazepam 0.5 Mg Tab) 0.5 mg PO BID PRN PRN Reason: anxiety Stop: 08/04/21 23:38 Meclizine HCl (Meclizine Hcl 25 Mg Tab) 25 mg PO TID PRN PRN Reason: dizziness Stop: 08/05/21 00:24 Metoprolol Tartrate (Metoprolol Tartrate 100 Mg Tab) 100 mg PO BID [facility] Stop: 08/04/21 23:38 Last Admin: 07/06/21 08:13 Dose: 100 mg Documented by: Oxycodone HCl (Oxycodone Hcl Ir 5 Mg Tab (Immediate Release)) 5 mg PO Q4H PRN PRN Reason: pain Stop: 12/21/21 23:38 Last Admin: 07/06/21 04:35 Dose: 5 mg Documented by: Pantoprazole Sodium (Pantoprazole 40 Mg Tab) 40 mg PO QAM [facility] Stop: 08/05/21 08:59 Last Admin: 07/06/21 08:13 Dose: 40 mg Documented by: Polyethylene Glycol (Polyethylene (Miralax) 17 Gm Pack) 17 gm PO DAILY PRN PRN Reason: Constipation Stop: 08/04/21 23:38 Potassium Chloride (Potassium Chloride Crtab 20 Meq Tabcr) 20 meq PO BID [facility] Stop: 08/04/21 23:38 Last Admin: 07/06/21 08:13 Dose: 20 meq Documented by: Tramadol HCl (Tramadol Hcl 50 Mg Tablet) 50 mg PO TID PRN PRN Reason: pain Stop: 08/04/21 23:38 PG Care Time/CCT Total # of Minutes Spent Total Time Spent with Patient: Total time spent is greater than 50% in coordination of care (as documented) at patient's floor/unit and/or counseling patient:40 Coding Level of Care Code 10820 Initial Inpt Care Lvl 3 Diagnoses Severe mitral valve regurgitation I34.0 Severe aortic insufficiency I35.1 CHF (congestive heart failure) I50.9 Heart failure chronicity: acute on chronic Heart failure type: unspecified Leg swelling M79.89 Atrial fibrillation, permanent I48.21 LBBB (left bundle branch block) I44.7 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
--- NOTE | 2021-07-06 12:08 | Hospitalist Progress Note ---
Date of Service July 06, 2021 Assessment & Plan (1) CHF (congestive heart failure): Plan: Presents with worsening SOB, leg swelling and weight gain Currently on Bumex 2mg BID Making good urine, about 1L in negative fluid balance 2 D ECHO, done, result pending Continue diuretics Monitor I/O, daily weight Appreciate cardiology recs (2) Severe mitral valve regurgitation: Plan: History of severe Mitral and aortic inssufficiency patient had refused surgery in the past continue conservative medical mgt (3) Severe aortic insufficiency: Plan: same as above (4) Atrial fibrillation, permanent: Plan: rate controlled continue home medications Admission and Anticipated Discharge Date Admission Date: July 05, 2021 Subjective Patient seen and examined today, says SOB is much improved, although still gets winded on mild exertion Review of Systems Review of Systems: All systems reviewed are negative, apart from the ones contained in the history. Physical Exam Physical Exam: The patient is awake, alert and oriented 3, well developed and well nourished, normocephalic and atraumatic, lying in bed and in no acute distress. HEENT--PERRL, EOMI, mucous membranes and oropharynx mildly dry Neck--supple. No JVD. No bruits. Thyroid normal, trachea midline, no adenopathy. Heart--Regurgitant murmur Lungs--clear bilaterally, no respiratory distress, no accessory muscle use. Abdomen--normal bowel sounds and soft. Mild epigastric and left sided abdominal pain Extremities--Bilateral leg edema Dermatologic--normal skin turgor, normal color, no abnormal lymph nodes, no rash. Neurologic--cranial nerves II through XII grossly intact. Rheumatologic--normal range of motion. Psychiatric--normal affect. Results & Data Results & Data ([facility]) Vital Signs (Past 12 Hours) Vital Signs Temp Pulse Resp BP Pulse Ox 07/06/21 10:58 97.9 F 73 20 104/66 94 07/06/21 06:53 98.1 F 74 20 128/59 L 92 07/06/21 06:28 79 20 106/56 L 90 07/06/21 01:58 68 20 134/55 L 93 07/06/21 00:04 66 20 123/68 92 PG Care Time/CCT Total # of Minutes Spent Total Time Spent with Patient: Total time spent is greater than 50% in coordination of care (as documented) at patient's floor/unit and/or counseling patient: Coding Level of Care Code 46779 Subseq Hosp Care Lvl 2 Diagnoses CHF (congestive heart failure) I50.9 Heart failure chronicity: acute on chronic Heart failure type: unspecified Severe mitral valve regurgitation I34.0 Severe aortic insufficiency I35.1 Atrial fibrillation, permanent I48.21 (1) CHF (congestive heart failure) Heart failure chronicity: acute on chronic Heart failure type: unspecified Qualified Code(s): I50.9 - Heart failure, unspecified
[2021-07-06] MEDS: traMADol HCL 50 MG TABLET PO PRN (13:18)
[2021-07-06] MEDS: ACETAMINOPHEN 325 MG TAB PO PRN (14:20)
[2021-07-06] MEDS: BACLOFEN 10 MG TAB PO PRN (14:20)
[2021-07-06] MEDS: LORazepam 0.5 MG TAB PO PRN (14:20)
--- NOTE | 2021-07-06 14:20 | XCELERA ---
[id number] \\[id number]
--- NOTE | 2021-07-06 15:44 | Electrocardiogram Report ---
Test Reason : Blood Pressure : / mmHG Vent. Rate : 076 BPM Atrial Rate : 071 BPM P-R Int : 000 ms QRS Dur : 146 ms QT Int : 430 ms P-R-T Axes : 000 -61 116 degrees QTc Int : 483 ms Atrial fibrillation with ventricular-paced complexes Left axis deviation Left bundle branch block Abnormal ECG When compared with ECG of 28-MAY-2021 15:25, No significant change Confirmed by Ayush Mary ([id number]) on 07/06/2021 3:43:32 PM Referred By: REFERRED SELF Confirmed By:Ayush Mary
--- NOTE | 2021-07-07 04:01 | Billing Data ---
Date of Service July 07, 2021 Coding Level of Care Code 71712 Initial Inpt Care Lvl 3
[2021-07-07] MEDS: APIXABAN 2.5 MG TAB PO SCH ×2 (07:56→20:31)
[2021-07-07] MEDS: PANTOprazole 40 MG TAB PO SCH (07:57)
[2021-07-07] MEDS: METOPROLOL TARTRATE 100 MG TAB PO SCH ×2 (07:57→20:31)
[2021-07-07] MEDS: BUMETANIDE 2 MG in SYRINGE 0 ML IV SCH ×2 (07:57→17:54)
[2021-07-07] MEDS: POTASSIUM CHLORIDE CRTAB 20 MEQ TABCR PO SCH ×2 (07:57→20:32)
[2021-07-07] MEDS: allopurinoL 100 MG TAB PO SCH (07:57)
[2021-07-07] MEDS: CETIRIZINE HCL 10 MG TABLET PO SCH (07:57)
[2021-07-07] MEDS: oxyCODONE HCL IR 5 MG TAB (IMMEDIATE RELEASE) PO PRN ×2 (07:58→18:16)
--- NOTE | 2021-07-07 12:09 | Hospitalist Progress Note ---
Date of Service July 07, 2021 Assessment & Plan (1) Congestive heart failure: Plan: This is an 81 yo F w/ pMHx. heart failure with preserved EF, following with the heart failure clinic, HTN, HLD, valvular disease, CKD III, atrial fibrillation on Eliquis presenting with lower extremity edema. Admitted to med./surg. tele Acute on chronic exacerbation of heart failure with preserved EF, 2 D ECHO showed preserved EF of 60-65%, note with severe mitral regurgitation and severe aortic insufficiency - cardiology on consult, appreciate recs - Bumex 2 IV BID, continue -Monitor I/o, daily weights Atrial fibrillation, rate controlled, [id number] 5+ on Eliquis - continue metoprolol Prediabetic, last a1C 5.7 in January 2020 - A1c ordered HTN BP 118/62 today continue Metoprolol HLD continue Atorvastatin DVT: Eliquis Diet: HH, low sodium Code: full code (2) CKD (chronic kidney disease), stage III: (3) Hyperlipidemia: (4) Hypertension: (5) AV block, 3rd degree: (6) Aortic stenosis: (7) Gout: (8) Prediabetes: (9) Mitral regurgitation: Admission and Anticipated Discharge Date Admission Date: July 05, 2021 Subjective Patient seen and examined today, says SOB is much improved, although still gets winded on mild exertion Review of Systems Review of Systems: All systems reviewed are negative, apart from the ones contained in the history. Physical Exam Physical Exam: The patient is awake, alert and oriented 3, well developed and well nourished, normocephalic and atraumatic, lying in bed and in no acute distress. HEENT--PERRL, EOMI, mucous membranes and oropharynx mildly dry Neck--supple. No JVD. No bruits. Thyroid normal, trachea midline, no adenopathy. Heart--Regurgitant murmur Lungs--clear bilaterally, no respiratory distress, no accessory muscle use. Abdomen--normal bowel sounds and soft. Mild epigastric and left sided abdominal pain Extremities--Bilateral leg edema, stasis dermatitis Dermatologic--normal skin turgor, normal color, no abnormal lymph nodes, no rash. Neurologic--cranial nerves II through XII grossly intact. Rheumatologic--normal range of motion. Psychiatric--normal affect. Results & Data Results & Data ([facility]) Vital Signs (Past 12 Hours) Vital Signs Temp Pulse Resp BP Pulse Ox 07/07/21 08:17 98.2 F 64 18 132/71 96 07/07/21 04:19 97.7 F 67 21 121/66 98 PG Care Time/CCT Total # of Minutes Spent Total Time Spent with Patient: Total time spent is greater than 50% in coordination of care (as documented) at patient's floor/unit and/or counseling patient: Coding Level of Care Code 05543 Subseq Hosp Care Lvl 2 Diagnoses Congestive heart failure I50.9 Heart failure chronicity: acute on chronic CKD (chronic kidney disease), stage III N18.3 Hyperlipidemia E78.5 Hypertension I10 AV block, 3rd degree I44.2 Aortic stenosis I35.0 Gout M10.9 Prediabetes R73.03 Mitral regurgitation I34.0 (1) Congestive heart failure Heart failure chronicity: acute on chronic
--- NOTE | 2021-07-07 16:40 | Cardiology Progress Note ---
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 Valvular heart disease: Clinically and by echocardiography her valves are working well. 3. Leg swelling: She has severe edema, she is clearly fluid overload and she is quite symptomatic but that is improving with diuresis. I would continue diuresis. 4. Atrial fibrillation: Her rate is well controlled, she is pacing intermittently, this is appropriate for her arrhythmia and she should remain on anticoagulation. 5. Congestive heart failure: She slept better during the night and I believe that is an improvement in her heart failure. I would continue diuresis. 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 It paces the majority of the time appropriately. Admission and Anticipated Discharge Date Admission Date: July 05, 2021 Subjective She is definitely feeling better today, although she is little vague on exactly how. She was not really short of breath before but she slept better, she has less leg discomfort which may be due to her distention from edema. No chest discomfort, no orthopnea or PND. Physical Exam Physical Exam: Constitutional: Alert, cooperative and in no distress. HEENT: Unremarkable Neck: No jugular venous distention, carotid pulses are irregular but otherwise normal and equal bilaterally without bruits. Pulmonary: Clear to auscultation bilaterally. Cardiac: Irregular rhythm with no murmur, gallop or rub. Abdomen: Soft, nontender with normal bowel sounds. Extremities: No edema. Distal pulses intact. Neurologic: No focal findings. Gait is steady. Skin: No rash, ecchymoses or petechiae. Results & Data ([facility]) Vital Signs (Past 12 Hours) Vital Signs Temp Pulse Resp BP Pulse Ox 07/07/21 12:06 37.1 C 71 16 118/62 98 07/07/21 08:17 36.8 C 64 18 132/71 96 Laboratory Results Intake and Output 07/07/21 07/07/21 07/07/21 06:59 14:59 22:59 Intake Total 120 / 510 200 / 200 Output Total 725 / 2315 Balance -605 / -1805 200 / 200 Intake: Oral 120 / 510 200 / 200 Output: Urine 725 / 1175 Other: Weight 100.1 kg Weight Measurement Method Built in [facility] Diagnostic Findings Telemetry: Atrial fibrillation with ventricular pacing. Rate very well controlled. Echocardiogram yesterday: Normal left ventricular systolic function with mild concentric left ventricular hypertrophy. Her aortic and mitral valves were not well visualized but she does have significant mitral regurgitation. [place] to be similar to August 2015. 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
[2021-07-07] MEDS: ATORVASTATIN 40 MG TAB PO SCH (20:31)
[2021-07-07] MEDS: BACLOFEN 10 MG TAB PO PRN (20:32)
[2021-07-08] MEDS: BUMETANIDE 2 MG in SYRINGE 0 ML IV SCH ×2 (08:32→18:02)
[2021-07-08] MEDS: PANTOprazole 40 MG TAB PO SCH (08:33)
[2021-07-08] MEDS: CETIRIZINE HCL 10 MG TABLET PO SCH (08:33)
[2021-07-08] MEDS: MECLIZINE HCL 25 MG TAB PO PRN (08:33)
[2021-07-08] MEDS: allopurinoL 100 MG TAB PO SCH (08:33)
[2021-07-08] MEDS: METOPROLOL TARTRATE 100 MG TAB PO SCH ×2 (08:33→20:52)
[2021-07-08] MEDS: APIXABAN 2.5 MG TAB PO SCH ×2 (08:33→20:52)
[2021-07-08] MEDS: oxyCODONE HCL IR 5 MG TAB (IMMEDIATE RELEASE) PO PRN ×2 (08:47→14:24)
[2021-07-08] MEDS: POTASSIUM CHLORIDE CRTAB 20 MEQ TABCR PO SCH ×2 (08:50→20:57)
--- NOTE | 2021-07-08 12:08 | Cardiology Progress Note ---
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 Valvular heart disease: Clinically and by echocardiography her valves are working well. 3. Leg swelling: She has severe edema, she is clearly fluid overload and she was quite symptomatic with leg discomfort although not a lot of shortness of breath but that is improving with diuresis. I would continue diuresis until her fluid resolves to some extent or her creatinine increases. She has not had a creatinine measurement in several days. 4. Atrial fibrillation: Her rate is well controlled, she is pacing intermittently, this is appropriate for her arrhythmia and she should remain on anticoagulation. 5. Congestive heart failure: She slept better during the night and I believe that is an improvement in her heart failure. I would continue diuresis though since she clearly has a lot of fluid in her legs. Her weight has been steadily decreasing. 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 It paces the minority of the time appropriately. 7. Anticoagulation: She is on Eliquis at a reduced dose, this is appropriate given her age and decreased kidney function. Admission and Anticipated Discharge Date Admission Date: July 05, 2021 Subjective She continues to feel relatively well. She tells me that she had a little bit of a panicky sensation yesterday and needed oxygen, today she is in bed and not on oxygen. She feels that her legs have improved and she has less discomfort. She is minimally active. Physical Exam Physical Exam: Constitutional: Alert, cooperative and in no distress. HEENT: Unremarkable Neck: No jugular venous distention, carotid pulses are irregular but otherwise normal and equal bilaterally without bruits. Pulmonary: Clear to auscultation bilaterally. Cardiac: Irregular rhythm with no murmur, gallop or rub. Abdomen: Soft, nontender with normal bowel sounds. Extremities: Marked pretibial edema, +3-4 bilateral. Neurologic: No focal findings. Gait was not tested. Skin: No rash, ecchymoses or petechiae. Results & Data ([facility]) Vital Signs (Past 12 Hours) Vital Signs Temp Pulse Pulse Resp BP Pulse Ox 12/10/21 08:23 67 07/08/21 07:58 36.4 C L 65 19 125/75 100 07/08/21 04:03 36.6 C 68 19 111/65 97 Laboratory Results Intake and Output 07/07/21 07/08/21 07/08/21 22:59 06:59 14:59 Intake Total 200 / 500 100 / 500 Output Total 1050 / 1550 500 / 1550 Balance -850 / -1050 -400 / -1050 Intake: Oral 200 / 500 100 / 500 Output: Urine Amount (Catheter) 1050 / 1550 500 / 1550 Vivas/Indwelling 1050 / 1550 500 / 1550 Other: Weight 99.8 kg Weight Measurement Method Built in [facility] Diagnostic Findings Telemetry: Atrial fibrillation with intermittent ventricular pacing appropriately. 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
--- NOTE | 2021-07-08 14:55 | Hospitalist Progress Note ---
Date of Service July 08, 2021 Assessment & Plan (1) Congestive heart failure: Plan: This is an 81 yo F w/ pMHx. heart failure with preserved EF, following with the heart failure clinic, HTN, HLD, valvular disease, CKD III, atrial fibrillation on Eliquis presenting with lower extremity edema. Admitted to med./surg. tele Acute on chronic exacerbation of heart failure with preserved EF, 2 D ECHO showed preserved EF of 60-65%, note with severe mitral regurgitation and severe aortic insufficiency -Continues to diurese well, 1.5 L negative balance in the last 24 hrs - cardiology on consult, appreciate recs - Bumex 2 IV BID, continue -Monitor I/o, daily weights Atrial fibrillation, rate controlled, [id number] 5+ on Eliquis - continue metoprolol Prediabetic, last a1C 5.7 in January 2020 - A1c ordered HTN BP 103/58 today continue Metoprolol HLD continue Atorvastatin CKD stage 3: Slight improvement in renal function DVT: Eliquis Diet: HH, low sodium Code: full code (2) CKD (chronic kidney disease), stage III: Plan: stable slight improvement in renal function (3) Hyperlipidemia: (4) Hypertension: (5) AV block, 3rd degree: (6) Aortic stenosis: (7) Gout: (8) Prediabetes: (9) Mitral regurgitation: Admission and Anticipated Discharge Date Admission Date: July 05, 2021 Subjective SOB is much improved, sitting up in the chair Review of Systems Review of Systems: All systems reviewed are negative, apart from the ones contained in the history. Physical Exam Physical Exam: The patient is awake, alert and oriented 3, well developed and well nourished, normocephalic and atraumatic, lying in bed and in no acute distress. HEENT--PERRL, EOMI, mucous membranes and oropharynx mildly dry Neck--supple. No JVD. No bruits. Thyroid normal, trachea midline, no adenopathy. Heart--Regurgitant murmur Lungs--clear bilaterally, no respiratory distress, no accessory muscle use. Abdomen--normal bowel sounds and soft. Mild epigastric and left sided abdominal pain Extremities--Bilateral leg edema, stasis dermatitis Dermatologic--normal skin turgor, normal color, no abnormal lymph nodes, no rash. Neurologic--cranial nerves II through XII grossly intact. Rheumatologic--normal range of motion. Psychiatric--normal affect. Results & Data Results & Data ([facility]) Vital Signs (Past 12 Hours) Vital Signs Temp Pulse Pulse Resp BP Pulse Ox 07/08/21 12:06 98.1 F 68 20 103/58 L 99 07/08/21 08:23 67 07/08/21 07:58 97.5 F L 65 19 125/75 100 07/08/21 04:03 97.9 F 68 19 111/65 97 PG Care Time/CCT Total # of Minutes Spent Total Time Spent with Patient: Total time spent is greater than 50% in coordination of care (as documented) at patient's floor/unit and/or counseling patient: Coding Level of Care Code 72908 Subseq Hosp Care Lvl 2 Diagnoses Congestive heart failure I50.9 Heart failure chronicity: acute on chronic CKD (chronic kidney disease), stage III N18.3 Hyperlipidemia E78.5 Hypertension I10 AV block, 3rd degree I44.2 Aortic stenosis I35.0 Gout M10.9 Prediabetes R73.03 Mitral regurgitation I34.0 (1) Congestive heart failure Heart failure chronicity: acute on chronic
[2021-07-08] MEDS: ACETAMINOPHEN 325 MG TAB PO PRN (20:47)
[2021-07-08] MEDS: ATORVASTATIN 40 MG TAB PO SCH (20:52)
[2021-07-09] MEDS: MECLIZINE HCL 25 MG TAB PO PRN ×2 (05:44→09:07)
[2021-07-09 07:40] LABS: Hematocrit (blood only) 38.3 % (37-47); Hemoglobin 11.7 g/dL (12.0-16.0); Mean Corpuscular Hemoglobin 31.7 pg (25-34); Mean Corpuscular Hgb Conc 30.5 g/dL (32-36); Mean Corpuscular Volume 103.8 fL (80-100); RDW Standard Deviation 60.7 fL (36.4-46.3); Red Blood Count 3.69 M/uL (4.2-5.4); White Blood Count 6.14 K/uL (4.8-10.8)
[2021-07-09 08:18] LABS: BUN Creatinine Ratio 21.2 (10-20); Calcium 8.8 mg/dl (8.5-10.1); Creatinine Clr Calc Pharmacy 20.9 ml/min; Est GFR (African American) 23.8 ml/min; Est GFR (Non-African American) 20.5 ml/min; Potassium 3.3 mmol/L (3.5-5.1)
[2021-07-09 08:27] LABS: Mean Platelet Volume 9.9 fL (7.4-10.4); Platelet Count 56 K/uL (130-400); Platelet Estimate Decreased (Normal)
[2021-07-09] MEDS: METOPROLOL TARTRATE 100 MG TAB PO SCH ×2 (09:06→20:11)
[2021-07-09] MEDS: BUMETANIDE 2 MG in SYRINGE 0 ML IV SCH ×2 (09:06→16:55)
[2021-07-09] MEDS: oxyCODONE HCL IR 5 MG TAB (IMMEDIATE RELEASE) PO PRN (09:06)
[2021-07-09] MEDS: CETIRIZINE HCL 10 MG TABLET PO SCH (09:07)
[2021-07-09] MEDS: APIXABAN 2.5 MG TAB PO SCH ×2 (09:07→20:11)
[2021-07-09] MEDS: allopurinoL 100 MG TAB PO SCH (09:07)
[2021-07-09] MEDS: PANTOprazole 40 MG TAB PO SCH (09:08)
[2021-07-09] MEDS: POTASSIUM CHLORIDE CRTAB 20 MEQ TABCR PO SCH ×3 (09:25→21:46)
[2021-07-09] MEDS ORDERED: POTASSIUM CHLORIDE 20 MEQ/15 ML UDC PO STA ×2 (13:23→20:21)
--- NOTE | 2021-07-09 13:39 | Hospitalist Progress Note ---
Date of Service July 09, 2021 Assessment & Plan (1) Congestive heart failure: Plan: This is an 81 yo F w/ pMHx. heart failure with preserved EF, following with the heart failure clinic, HTN, HLD, valvular disease, CKD III, atrial fibrillation on Eliquis presenting with lower extremity edema. Admitted to med./surg. tele Acute on chronic exacerbation of heart failure with preserved EF, 2 D ECHO showed preserved EF of 60-65%, note with severe mitral regurgitation and severe aortic insufficiency -diuresing well, but also drinking a lot of water, I/O 1660/[address] her on fluid restriction, 1L/day - cardiology on consult, appreciate recs - Bumex 2 IV BID, continue -Monitor I/o, daily weights Atrial fibrillation, rate controlled, [id number] 5+ on Eliquis - continue metoprolol Prediabetic, last a1C 5.7 in January 2020 - A1c ordered HTN BP 130/84 today continue Metoprolol HLD continue Atorvastatin CKD stage 3: Kidney function continues to improve DVT: Eliquis Diet: HH, low sodium Code: full code (2) CKD (chronic kidney disease), stage III: Plan: stable slight improvement in renal function (3) Hyperlipidemia: (4) Hypertension: (5) AV block, 3rd degree: (6) Aortic stenosis: (7) Gout: (8) Prediabetes: (9) Mitral regurgitation: Admission and Anticipated Discharge Date Admission Date: July 05, 2021 Subjective SOB is much improved, sitting up in the chair, looks weak Review of Systems Review of Systems: All systems reviewed are negative, apart from the ones contained in the history. Physical Exam Physical Exam: The patient is awake, alert and oriented 3, well developed and well nourished, normocephalic and atraumatic, lying in bed and in no acute di stress. HEENT--PERRL, EOMI, mucous membranes and oropharynx mildly dry Neck--supple. No JVD. No bruits. Thyroid normal, trachea midline, no adenopathy. Heart--Regurgitant murmur Lungs--clear bilaterally, no respiratory distress, no accessory muscle use. Abdomen--normal bowel sounds and soft. Mild epigastric and left sided abdominal pain Extremities--Bilateral leg edema, stasis dermatitis Dermatologic--normal skin turgor, normal color, no abnormal lymph nodes, no rash. Neurologic--cranial nerves II through XII grossly intact. Rheumatologic--normal range of motion. Psychiatric--normal affect. Results & Data Results & Data ([facility]) Vital Signs (Past 12 Hours) Vital Signs Temp Pulse Pulse Resp BP Pulse Ox 07/09/21 11:46 98.1 F 92 H 20 130/84 100 07/09/21 07:51 62 07/09/21 05:45 75 118/68 07/09/21 03:12 97.3 F L 73 20 131/76 100 Laboratory Results Laboratory Results - last 24 hr 07/09/21 07/09/21 07:11 07:11 WBC 6.14 RBC 3.69 L Hgb 11.7 L Hct 38.3 MCV 103.8 H MCH 31.7 MCHC 30.5 L RDW Std Deviation 60.7 H RDW Coeff of Annabelle 16.0 H Plt Count 56 L MPV 9.9 Platelet Estimate Decreased L Sodium 144 Potassium 3.3 L Chloride 103 Carbon Dioxide 36 H Anion Gap 5.0 BUN 46 H Creatinine 2.16 H Est Cr Clr Drug Dosing 20.9 Est GFR ( Amer) 23.8 Est GFR (Non-Af Amer) 20.5 BUN/Creatinine Ratio 21.2 H Glucose 121 H Calcium 8.8 PG Care Time/CCT Total # of Minutes Spent Total Time Spent with Patient: Total time spent is greater than 50% in coordination of care (as documented) at patient's floor/unit and/or counseling patient: Coding Level of Care Code 64341 Subseq Hosp Care Lvl 2 Diagnoses Congestive heart failure I50.9 Heart failure chronicity: acute on chronic CKD (chronic kidney disease), stage III N18.3 Hyperlipidemia E78.5 Hypertension I10 AV block, 3rd degree I44.2 Aortic stenosis I35.0 Gout M10.9 Prediabetes R73.03 Mitral regurgitation I34.0 Time Spent (min) 35 (1) Congestive heart failure Heart failure chronicity: acute on chronic
[2021-07-09] MEDS: ACETAMINOPHEN 325 MG TAB PO PRN (13:43)
[2021-07-09] MEDS: LORazepam 0.5 MG TAB PO PRN (20:11)
[2021-07-09] MEDS: ATORVASTATIN 40 MG TAB PO SCH (20:11)
[2021-07-10] MEDS: BUMETANIDE 2 MG in SYRINGE 0 ML IV SCH ×2 (08:17→17:31)
[2021-07-10] MEDS: allopurinoL 100 MG TAB PO SCH (08:17)
[2021-07-10] MEDS: METOPROLOL TARTRATE 100 MG TAB PO SCH ×2 (08:17→20:24)
[2021-07-10] MEDS: CETIRIZINE HCL 10 MG TABLET PO SCH (08:18)
[2021-07-10] MEDS: APIXABAN 2.5 MG TAB PO SCH ×2 (08:18→20:24)
[2021-07-10] MEDS: PANTOprazole 40 MG TAB PO SCH (08:18)
[2021-07-10] MEDS: POTASSIUM CHLORIDE CRTAB 20 MEQ TABCR PO SCH ×2 (08:18→20:24)
[2021-07-10] MEDS: traMADol HCL 50 MG TABLET PO PRN ×2 (11:00→19:22)
--- NOTE | 2021-07-10 13:25 | Hospitalist Progress Note ---
Date of Service July 10, 2021 Assessment & Plan (1) Congestive heart failure: Plan: This is an 81 yo F w/ pMHx. heart failure with preserved EF, following with the heart failure clinic, HTN, HLD, valvular disease, CKD III, atrial fibrillation on Eliquis presenting with lower extremity edema. Admitted to med./surg. tele Acute on chronic exacerbation of heart failure with preserved EF, 2 D ECHO showed preserved EF of 60-65%, note with severe mitral regurgitation and severe aortic insufficiency Will continue fluid restriction, 1L/day -I/O 860/1600 in the last 24 hrs - cardiology on consult, appreciate recs - Bumex 2 IV BID, continue -Monitor I/o, daily weights Atrial fibrillation, rate controlled, [id number] 5+ on Eliquis - continue metoprolol Prediabetic, last a1C 5.7 in January 2020 - A1c ordered HTN BP 100/60 today continue Metoprolol with holding parameters HLD continue Atorvastatin CKD stage 3: Kidney function continues to improve DVT: Eliquis Diet: HH, low sodium Code: full code (2) CKD (chronic kidney disease), stage III: Plan: stable slight improvement in renal function avoid nephrotoxics (3) Hyperlipidemia: (4) Hypertension: (5) AV block, 3rd degree: (6) Aortic stenosis: (7) Gout: (8) Prediabetes: (9) Mitral regurgitation: Admission and Anticipated Discharge Date Admission Date: July 05, 2021 Discharge back home with home health in the next 24-48 hrs Subjective SOB is much improved, in bed, slept well Review of Systems Review of Systems: All systems reviewed are negative, apart from the ones contained in the history. Physical Exam Physical Exam: The patient is awake, alert and oriented 3, well developed and well nourished, normocephalic and atraumatic, lying in bed and in no acute distress. HEENT--PERRL, EOMI, mucous membranes and oropharynx mildly dry Neck--supple. No JVD. No bruits. Thyroid normal, trachea midline, no adenopathy . Heart--Regurgitant murmur Lungs--clear bilaterally, no respiratory distress, no accessory muscle use. Abdomen--normal bowel sounds and soft. Mild epigastric and left sided abdominal pain Extremities--Bilateral leg edema, stasis dermatitis Dermatologic--normal skin turgor, normal color, no abnormal lymph nodes, no rash. Neurologic--cranial nerves II through XII grossly intact. Rheumatologic--normal range of motion. Psychiatric--normal affect. Results & Data Results & Data ([facility]) Vital Signs (Past 12 Hours) Vital Signs Temp Pulse Resp BP Pulse Ox 07/10/21 11:23 97.7 F 77 18 100/60 100 07/10/21 07:09 97.5 F L 72 18 110/74 99 07/10/21 03:24 98.2 F 77 17 109/70 99 PG Care Time/CCT Total # of Minutes Spent Total Time Spent with Patient: Total time spent is greater than 50% in coordination of care (as documented) at patient's floor/unit and/or counseling patient: Coding Level of Care Code 49826 Subseq Hosp Care Lvl 2 Diagnoses Congestive heart failure I50.9 Heart failure chronicity: acute on chronic CKD (chronic kidney disease), stage III N18.3 Hyperlipidemia E78.5 Hypertension I10 AV block, 3rd degree I44.2 Aortic stenosis I35.0 Gout M10.9 Prediabetes R73.03 Mitral regurgitation I34.0 Time Spent (min) 35 (1) Congestive heart failure Heart failure chronicity: acute on chronic
[2021-07-10] MEDS: ATORVASTATIN 40 MG TAB PO SCH (20:24)
[2021-07-10] MEDS: LORazepam 0.5 MG TAB PO PRN (20:26)
[2021-07-10] MEDS: oxyCODONE HCL IR 5 MG TAB (IMMEDIATE RELEASE) PO PRN (23:48)
[2021-07-11] MEDS: ACETAMINOPHEN 325 MG TAB PO PRN (01:42)
[2021-07-11] MEDS: oxyCODONE HCL IR 5 MG TAB (IMMEDIATE RELEASE) PO PRN ×2 (06:14→15:43)
[2021-07-11 08:40] LABS: BUN Creatinine Ratio 23.9 (10-20); Calcium 9.3 mg/dl (8.5-10.1); Creatinine Clr Calc Pharmacy 23.5 ml/min; Est GFR (African American) 27.6 ml/min; Est GFR (Non-African American) 23.8 ml/min
[2021-07-11] MEDS: APIXABAN 2.5 MG TAB PO SCH ×2 (08:42→19:36)
[2021-07-11] MEDS: BUMETANIDE 2 MG in SYRINGE 0 ML IV SCH ×2 (08:42→15:44)
[2021-07-11] MEDS: METOPROLOL TARTRATE 100 MG TAB PO SCH ×2 (08:42→19:36)
[2021-07-11] MEDS: allopurinoL 100 MG TAB PO SCH (08:43)
[2021-07-11] MEDS: PANTOprazole 40 MG TAB PO SCH (08:43)
[2021-07-11] MEDS: POTASSIUM CHLORIDE CRTAB 20 MEQ TABCR PO SCH ×2 (08:43→19:36)
[2021-07-11] MEDS: CETIRIZINE HCL 10 MG TABLET PO SCH (08:43)
--- NOTE | 2021-07-11 08:47 | Hospitalist Progress Note ---
Date of Service July 11, 2021 Assessment & Plan (1) Congestive heart failure: Plan: This is an 81 yo F w/ pMHx. heart failure with preserved EF, following with the heart failure clinic, HTN, HLD, valvular disease, CKD III, atrial fibrillation on Eliquis presenting with lower extremity edema. Admitted to med./surg. tele Acute on chronic exacerbation of heart failure with preserved EF * 2 D ECHO showed preserved EF of 60-65%, note with severe mitral regurgitation and severe aortic insufficiency (Acute Mitral Regurgitation 2012 secondary to Flail Anterior Leaflet s/p 27 mm Biocor Bioprosthetic MVR 2012, Aortic Stenosis s/p [address] Giovanny Trifecta Bioprosthetic AVR 2012 replacement...son notes that one of the valves was had known error and did not elect to undergo repeat valve surgery) * --> Of note, had been arranged on hospice after last cardiology visit per discussion with son which was revoked about a week ago as they had not known about being signed up and assumed Dr Smith referred given no plans for valve repair/replacement Continue fluid restriction -- 1L/day Daily weights/I&os --> Net negative 4.2L since admission Cardiology on consult Continue Bumex 2mg IV BID --> plans for same at d/c but note she does have 4mg tablets currently and will need re-vised instructions vs repeat rx at d/c AMS * No focal deficits and has been ongoing over weeks-months per son * --> had been on "hospice and given lots of morphine" which has since been discontinued. * --> She does take ativan but only 0.5mg AT NIGHT --> changed in system * DOES NOT TAKE TRAMADOL --> DISCONTINUED. * TAKES OXYCODONE PRN -- up to 4 of the 5mg tablets daily but usually only take 2 tablets on regular basis -- will change to Q8H prn * Will check B12/folate * TSH to AM labs, especially given afib but prior values wnl * Check UA -- urine appears clear/yellow in mensah and denies symptoms, but given Mensah placed during admission and not with one at home, with recent worsening of confusion while inpatient noted per son, possible new UTI. Has been afebrile, WBC wnl Anemia * --> Hgb 11.6/11.7 despite diuresis as above * --> no active bleeding noted * Of note, macrocytic now when was previously normal in March --> checking B12/folate * CBC in AM Afib, permanent * is rate controlled ([id number] 5+ on Eliquis) * --> Continue Eliquis 2.5mg BID, metoprolol 100mg BID Prediabetic * last a1C 5.7 in January 2020 * - Add a1c to AM labs HTN/HLD * BP improved, currently 130/71 * continue Metoprolol with holding parameters * continue Atorvastatin CKD stage 3, VANNESA on admission * BUN/Cr improving with diuretics * Cr elevated to 2.7 on admission, currently 1.91 * Bumex as above until Cr bumped per cards * BMP in AM GERD --Continue protonix while inpatient, substituting for omeprazole as taking [employer] Anxiety/Depression --> worsening and patient stating she wants to (prior on hospice as above) --> decreased ativan to 0.5mg HS SCHEDULED as taking [employer]. Not agreeable to alternative medications at this time Psych consulted to further discuss alternative options given ativan may not be best choice given confusion as above Code status : changed to DNR per discussion with patient and son 07/11 Palliative consult in AM (2) CKD (chronic kidney disease), stage III: (3) Hyperlipidemia: (4) Hypertension: (5) AV block, 3rd degree: (6) Aortic stenosis: (7) Gout: (8) Prediabetes: (9) Mitral regurgitation: Plan: DVT proph- Eliquis, 2.5mg BID continued inpatient stay, diuresis as above palliative consult for goals of care placed -- had been on hospice in last month but son/patient were not alerted to this and while still may be appropriate they are looking into SNF/placement at this time as too much for son to care for at home even with extra help. CM to follow Admission and Anticipated Discharge Date Admission Date: July 05, 2021 Supervising Physician Co-Signing Physician Notes ARVIN Supervision Note: I did not personally see or examine the patient today, but I verified all sims points of ARVIN Maldonado's assessment and plan with the following exceptions/additions: None Subjective patient evaluated this morning doing about the same per RN, but very depressed discussed starting medication and she states "no more testing". discussed this would just help with mood/depression/anxiety. She states she has been told she has been declining for years and just wants to pass quickly. Denies any SI/HI. No fever, chills, chest pain. SOB about the same. Continues with LE edema. Mensah with yellow urine. Will consult with psych for further discussion/initiation of medication/options. Will consult with palliative to discuss end of life/goals of care. Patient currently listed as a level 1 however based on conversation sounded like she would prefer to be made level 5. Upon re-discussion, she states she ABSOLUTELY DOES NOT want anything done if she declines as would rather be made comfortable and "everyone at peace" during her end of life. Discussed with son today -- patient had been on hospice without their knowledge when signing up after last visit [facility] cardiology Dr Smith for valve replacement (had aortic and mitral but stated one valve that was replaced was actually defective and patient did not want to undergo any further surgeries). Discussed B12/folate labs and would like to see if they are contributing to confusion as well as checking a urine for possible UTI. Son agreed to plan and to have discussion with palliative medicine tomorrow -- did not want to put mom in correction facility but feels she is too much for him to handle at home as even when he leaves she is calling in an hour or two with a need. Review of Systems Review of Systems: All systems reviewed & are unremarkable except as noted in HPI & below Physical Exam Physical Exam: Constitutional: Awake, alert, intermittent confusion noted (not clear on date/month at times, easily reoriented), cooperative at times but stating she just wants to Eyes anicteric, EOMI Neck without thyromegaly, trachea midline without deviation, JVD unable to be appreciated due to body habitus Resp: faint inspiratory and expiratory wheezing, no crackles/rales, no respiratory distress, on room air currently CV: irregularly irregular, +murmur, no rubs or gallops, 3-4+ edema b/l LE with venous stasis changes as well GI: +BS, distended, non-tender, no guarding or rigidity : mensah with yellow urine in mensah bag Neuro: no focal deficit, no slurred speech or facial drop, strength equal bilaterally but diminished Psych: alert, oriented to person/place, occasionally time, depressed/anxious about wanting to Skin: warm, dry, chronic venous stasis changes b//l LE Results & Data Results & Data ([facility]) Vital Signs (Past 12 Hours) Vital Signs Temp Pulse Resp BP Pulse Ox 07/11/21 07:19 36.3 C L 79 16 112/69 92 07/11/21 02:48 36.4 C L 83 18 114/69 96 07/11/21 00:00 36.8 C 79 16 127/63 93 07/10/21 23:32 36.4 C L 68 20 117/67 97 Laboratory Results 07/11/21 07/11/21 Range/Units 07:27 07:27 Sodium 141 (136-145) mmol/L Potassium 4.1 (3.5-5.1) mmol/L Chloride 101 (98-107) mmol/L Carbon Dioxide 38 H (21-32) mmol/L Anion Gap 2.0 L (3-11) BUN 46 H (7-18) mg/dl Creatinine 1.91 H (0.6-1.2) mg/dl Est Cr Clr Drug Dosing 23.5 ml/min Est GFR ( Amer) 27.6 ml/min Est GFR (Non-Af Amer) 23.8 ml/min BUN/Creatinine Ratio 23.9 H (10-20) Glucose 126 H (70-99) mg/dl Calcium 9.3 (8.5-10.1) mg/dl Magnesium 1.8 (1.8-2.4) mg/dl Specimen Hemolysis PG Care Time/CCT Total # of Minutes Spent Total Time Spent with Patient: Total time spent is greater than 50% in coordination of care (as documented) at patient's floor/unit and/or counseling patient: Coding Level of Care Code 65196 Subseq Hosp Care Lvl 3 Diagnoses Congestive heart failure I50.9 Heart failure chronicity: acute on chronic CKD (chronic kidney disease), stage III N18.3 Hyperlipidemia E78.5 Hypertension I10 AV block, 3rd degree I44.2 Aortic stenosis I35.0 Gout M10.9 Prediabetes R73.03 Mitral regurgitation I34.0 (1) Congestive heart failure Heart failure chronicity: acute on chronic
--- NOTE | 2021-07-11 09:03 | Cardiology Progress Note ---
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 Valvular heart disease: Clinically and by echocardiography her valves are working well. Although this may contribute to her presentation overall it is not part of the acute problem. 3. Leg swelling: She has severe edema, she is remains fluid overload and she was quite symptomatic with leg discomfort on presentation although not a lot of shortness of breath but that is improving with diuresis. I would continue diuresis until her fluid resolves to some extent or her creatinine increases. So far her creatinine continues to improve, it would be helpful to know what her dry weight is and I would therefore continue diuresis until we feel that we have achieved it. 4. Atrial fibrillation: Her rate is well controlled, she is pacing intermittently, this is appropriate for her arrhythmia and she should remain on anticoagulation. 5. Congestive heart failure: I believe her heart failure has improved, she is left with edema but she does not have evidence of pulmonary edema. 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 It paces the minority of the time appropriately. 7. Anticoagulation: She is on Eliquis at a reduced dose, this is appropriate given her age and decreased kidney function. I doubt her creatinine will decrease below 1.5, at that point we need to consider increasing the dose. Admission and Anticipated Discharge Date Admission Date: July 05, 2021 Subjective He appears washed out and fatigued today, she will not tell me exactly what is bothering her but she is apparently not short of breath, her legs do not hurt, perhaps it is mostly depression. Physical Exam Physical Exam: Constitutional: Alert, cooperative and in no distress. HEENT: Unremarkable Neck: No jugular venous distention, carotid pulses are irregular but otherwise normal and equal bilaterally without bruits. Pulmonary: Clear to auscultation bilaterally. Cardiac: Irregular rhythm with no murmur, gallop or rub. Abdomen: Soft, nontender with normal bowel sounds. Extremities: Marked pretibial edema, +3-4 bilateral. Neurologic: No focal findings. Gait was not tested. Skin: No rash, ecchymoses or petechiae. Results & Data ([facility]) Vital Signs (Past 12 Hours) Vital Signs Temp Pulse Resp BP Pulse Ox 07/11/21 07:19 36.3 C L 79 16 112/69 92 07/11/21 02:48 36.4 C L 83 18 114/69 96 07/11/21 00:00 36.8 C 79 16 127/63 93 07/10/21 23:32 36.4 C L 68 20 117/67 97 Laboratory Results Comprehensive Metabolic Panel 07/11/21 Range/Units 07:27 Sodium 141 (136-145) mmol/L Chloride 101 (98-107) mmol/L Carbon Dioxide 38 H (21-32) mmol/L BUN 46 H (7-18) mg/dl Creatinine 1.91 H (0.6-1.2) mg/dl Glucose 126 H (70-99) mg/dl Calcium 9.3 (8.5-10.1) mg/dl Intake and Output 07/10/21 07/11/21 07/11/21 22:59 06:59 14:59 Intake Total 555 / 555 Output Total 525 / 1075 100 / 1075 75 / 75 Balance -525 / -520 455 / -520 -75 / -75 Intake: Oral 555 / 555 Output: Urine 75 / 75 Urine Amount (Catheter) 525 / 1075 100 / 1075 Vivas/Indwelling 525 / 1075 100 / 1075 Other: Weight 98.4 kg Weight Measurement Method Built in [facility] Diagnostic Findings Telemetry: Atrial fibrillation with a heart rate of 70-80 predominantly, intermittent ventricular pacing appropriately PG Care Time/CCT Total # of Minutes Spent Total Time Spent with Patient: Total time spent is greater than 50% in coordination of care (as documented) at patient's floor/unit and/or counseling patient: Coding Level of Care Code 55979 Subseq Hosp Care Lvl 2 Diagnoses Severe mitral valve regurgitation I34.0 Severe aortic insufficiency I35.1 Leg swelling M79.89 Atrial fibrillation, permanent I48.21 CHF (congestive heart failure) I50.9 Heart failure chronicity: acute on chronic Heart failure type: unspecified LBBB (left bundle branch block) I44.7 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
[2021-07-11 09:07] LABS: Potassium 4.1 mmol/L (3.5-5.1)
[2021-07-11 09:23] LABS: Magnesium 1.8 mg/dl (1.8-2.4)
[2021-07-11] MEDS ORDERED: LORazepam 0.5 MG TAB PO PRN ×2 (14:32→14:41)
[2021-07-11 16:57] LABS: Appearance Urine Cloudy (Clear); Bacteria Urine Automated 2+ (Negative); Bilirubin Urine Negative (Negative); Blood Urine 2+ (Negative); Color Urine Yellow; Epithelial Cell Urine Auto >30 /lpf (0-5); Glucose Urine UA Negative (Negative); Ketones Urine Negative (Negative); Leukocyte Esterase Urine Negative (Negative); Nitrite Urine Negative (Negative); Protein Urine Trace (Negative); RBC Urine Automated >30 /hpf (0-4); Specific Gravity Urine 1.012 (1.000-1.030); Urobilinogen Urine Negative (Negative)
[2021-07-11 17:01] LABS: Cast Urine Automated >30 /lpf (0-5)
[2021-07-11 17:34] LABS: Folate (Folic Acid) > 20.00 ng/ml (>5.38); Vitamin B12 416 pg/ml (193-986)
[2021-07-11] MEDS: ATORVASTATIN 40 MG TAB PO SCH (19:36)
[2021-07-12] MEDS: oxyCODONE HCL IR 5 MG TAB (IMMEDIATE RELEASE) PO PRN (03:42)
[2021-07-12] MEDS ORDERED: BUMETANIDE 2 MG in SYRINGE 0 ML IV ONE (04:15)
[2021-07-12 07:29] LABS: Hematocrit (blood only) 44.5 % (37-47); Hemoglobin 13.8 g/dL (12.0-16.0); Mean Corpuscular Hemoglobin 32.1 pg (25-34); Mean Corpuscular Volume 103.5 fL (80-100); Nucleated RBC # (auto) 0.08 K/uL (0-0); Platelet Count 81 K/uL (130-400); White Blood Count 8.06 K/uL (4.8-10.8)
[2021-07-12 07:38] LABS: Estimated Average Glucose 128 mg/dl; Hemoglobin A1C 6.1 % (4.5-5.6)
[2021-07-12 07:48] LABS: Calcium 9.9 mg/dl (8.5-10.1); Creatinine Clr Calc Pharmacy 19.7 ml/min; Est GFR (African American) 22.3 ml/min; Est GFR (Non-African American) 19.2 ml/min; Potassium 4.4 mmol/L (3.5-5.1)
[2021-07-12 07:59] LABS: Thyroid Stimulating Hormone 2.9 uIu/ml (0.300-4.500)
--- NOTE | 2021-07-12 08:19 | Hospitalist Progress Note ---
Date of Service July 12, 2021 Assessment & Plan (1) Congestive heart failure: Plan: This is an 81 yo F w/ pMHx. heart failure with preserved EF, following with the heart failure clinic, HTN, HLD, valvular disease, CKD III, atrial fibrillation on Eliquis presenting with lower extremity edema. Acute on chronic exacerbation of heart failure with preserved EF * 2 D ECHO showed preserved EF of 60-65%, note with severe mitral regurgitation and severe aortic insufficiency (Acute Mitral Regurgitation 2012 secondary to Flail Anterior Leaflet s/p 27 mm Biocor Bioprosthetic MVR 2012, Aortic Stenosis s/p [address] Giovanny Trifecta Bioprosthetic AVR 2012 replacement...son notes that one of the valves was had known error and did not elect to undergo repeat valve surgery) * --> Of note, had been arranged on hospice after last cardiology visit per discussion with son which was revoked about a week ago as they had not known about being signed up and assumed Dr Smith referred given no plans for valve repair/replacement * Fluid restriction 1L/day * Daily weights/I&O -- net negative 4.5L * Continued on bumex 2mg IV BID (got extra dose overnight 07/11) AMS * No focal deficits and has been ongoing over weeks-months per son * --> had been on "hospice and given lots of morphine" which has since been discontinued. * --> She does take ativan but only 0.5mg AT NIGHT --> changed in system * DOES NOT TAKE TRAMADOL --> DISCONTINUED. * TAKES OXYCODONE PRN -- up to 4 of the 5mg tablets daily but usually only take 2 tablets on regular basis -- will change to Q8H prn * Will check B12/folate -- no deficiency. TSH wnl * Checked UA - +bacteria, but appears infected. Urine cx pin-point re- incubating. * --> Has been afebrile/no elevation in WBC. No urinary symptoms reported prior to admission or in days past * Worsening confusion/lethargy AM 07/11, ABG obtained which showed worsening hypoxemic/hypercapnic respiratory failure * --> REFUSING BiPAP and wanting to be made comfortable. * -- plan of care discussed with son. does not feel able to take home on hospice * Palliative consulted -->comfort care, plans for GIP to start tomorrow and made patient comfort care * Moved to 3rd floor , supplemetal O2 to maintain sats, dilaudid prn, robinul prn secretions. add low dose ativan Q1h if needed Afib, permanent * is rate controlled ([id number] 5+ on Eliquis) * --> discontinue Eliquis 2.5mg BID, discontinue metoprolol 100mg BID Prediabetic * BSGs acceptable-no further sugar checks on comfort measures HTN/HLD * BP 110/61 * Discontinue metoprolol and atorvastatin on comfort measures CKD stage 3, VANNESA on admission * BUN/Cr improving with diuretics * Cr elevated to 2.7 on admission, improved to 1.91 --> 2.28 currently (got extra dose Bumex last evening) * continued Bumex 2mg BID, other medications discontinued Anemia * --> Hgb 13.8 now, possible lab error vs dilutional from volume overload * B12/folate wnl GERD --Discontinue protonix Anxiety/Depression --> worsening and patient stating she wants to (prior on hospice as above) --> decreased ativan to 0.5mg HS SCHEDULED as taking [employer]. Not agreeable to alternative medications at this time Psych consulted to further discuss alternative options given ativan may not be best choice given confusion as above consideration for modafinil 100mg QD x 3-7 days for possible delirium, however holding off starting this as moving towards comfort Code status : changed to DNR per discussion with patient and son 07/11 (2) CKD (chronic kidney disease), stage III: (3) Hyperlipidemia: (4) Hypertension: (5) AV block, 3rd degree: (6) Aortic stenosis: (7) Gout: (8) Prediabetes: (9) Mitral regurgitation: Plan: all life sustaining medications discontinued this afternoon bumex continued for volume overload/comfort diladid IV prn, ativan prn, robinul prn secretions moved to 3rd floor and [facility] hospice to accept under GIP for tomorrow Will d/c and re-admit to GIP in AM when they resume care Admission and Anticipated Discharge Date Admission Date: July 05, 2021 Supervising Physician Co-Signing Physician Notes PA Supervision Note: I did not personally see or examine the patient today, but I verified all sims points of ARVIN Maldonado's assessment and plan with the following exceptions/additions: None Subjective patient evaluated this morning. lethargic, stating "pull the plug" discussed hospice and patient wanting to be made comfortable. increasing confusion and ABG checked -> elevated CO2 and inquired about BiPAP use to help her feel better but she continues to decline. discussed with son on phone, who would like to make her comfortable at this time. awaiting palliative consult but discussion had regarding inpatient hospice as expected continued decline and likely patient will pass over next couple hours- days unless interventions undertaken/BiPAP at least to improve hypercapnia. discussed with palliative and son in hospital and plans for transition to hospice/comfort care and now accepted for [facility] hospice and will be made GIP tomorrow. Review of Systems Review of Systems: All systems reviewed & are unremarkable except as noted in HPI & below Physical Exam Physical Exam: Constitutional: lethargic, awakens to name and knows in hosp ital but states she wants "the plug pulled" Eyes anicteric, EOMI neck without thyromegaly, trachea midline without deviation, JVD unable to be appreciated Resp: poor inspiratory effort, belly breathing noted at times, 96% on 4L, diminished in the bases with associated crackles, faint exp wheezing noted CV: irregularly irregular, systolic ejection murmur with radiation to apex, harsh diatolic 5/6 murmur with radiation left sternal border, +3-4 b/l LE edema with venous stasis changes GI: +BS, distended, non-tender : mensah with yellow urine draining Psych: alert but not oriented to place/time, worsening confusion/lethargy, stating "wanting to pull the plug" Neuro: no focal deficit, no facial droop or slurred speech appreciated Results & Data Results & Data ([facility]) Vital Signs (Past 12 Hours) Vital Signs Temp Pulse Resp BP Pulse Ox 07/12/21 07:56 36.6 C 69 18 111/57 L 96 07/12/21 04:00 36.5 C 77 24 124/77 95 07/12/21 00:02 36.7 C 83 18 114/59 L 90 Laboratory Results 07/12/21 07/12/21 07/12/21 Range/Units 06:52 06:52 06:52 WBC 8.06 (4.8-10.8) K/uL RBC 4.30 (4.2-5.4) M/uL Hgb 13.8 (12.0-16.0) g/dL Hct 44.5 (37-47) % MCV 103.5 H (80-100) fL MCH 32.1 (25-34) pg MCHC 31.0 L (32-36) g/dL Plt Count 81 L (130-400) K/uL Absolute Nucleated RBC 0.08 H (0-0) K/uL Nucleated RBC % (auto) 1.0 % Sodium 140 (136-145) mmol/L Potassium 4.4 (3.5-5.1) mmol/L Chloride 100 (98-107) mmol/L Carbon Dioxide 32 (21-32) mmol/L Anion Gap 8.0 (3-11) BUN 57 H (7-18) mg/dl Creatinine 2.28 H D (0.6-1.2) mg/dl Est Cr Clr Drug Dosing 19.7 ml/min Est GFR ( Amer) 22.3 ml/min Est GFR (Non-Af Amer) 19.2 ml/min BUN/Creatinine Ratio 25.0 H (10-20) Glucose 142 H (70-99) mg/dl Estimat Average Glucose 128 mg/dl Hemoglobin A1c 6.1 H (4.5-5.6) % Calcium 9.9 (8.5-10.1) mg/dl Magnesium (1.8-2.4) mg/dl Vitamin B12 (193-986) pg/ml Folate (>5.38) ng/ml TSH 2.900 (0.300-4.500) uIu/ml Specimen Hemolysis Urine Color Urine Appearance (Clear) Urine pH (4.5-7.5) Ur Specific [place] (1.000-1.030) Urine Protein (Negative) Urine Glucose (UA) (Negative) Urine Ketones (Negative) Urine Blood (Negative) Urine Nitrite (Negative) Urine Bilirubin (Negative) Urine Urobilinogen (Negative) Ur Leukocyte Esterase (Negative) Urine WBC (Auto) (0-5) /hpf Urine RBC (Auto) (0-4) /hpf U Hyaline Cast (Auto) (0-5) /lpf U Epithel Cells (Auto) (0-5) /lpf Urine Bacteria (Auto) (Negative) 07/11/21 07/11/21 07/11/21 Range/Units 16:45 15:57 07:27 WBC (4.8-10.8) K/uL RBC (4.2-5.4) M/uL Hgb (12.0-16.0) g/dL Hct (37-47) % MCV (80-100) fL MCH (25-34) pg MCHC (32-36) g/dL Plt Count (130-400) K/uL Absolute Nucleated RBC (0-0) K/uL Nucleated RBC % (auto) % Sodium (136-145) mmol/L Potassium (3.5-5.1) mmol/L Chloride (98-107) mmol/L Carbon Dioxide (21-32) mmol/L Anion Gap (3-11) BUN (7-18) mg/dl Creatinine (0.6-1.2) mg/dl Est Cr Clr Drug Dosing ml/min Est GFR ( Amer) ml/min Est GFR (Non-Af Amer) ml/min BUN/Creatinine Ratio (10-20) Glucose (70-99) mg/dl Estimat Average Glucose mg/dl Hemoglobin A1c (4.5-5.6) % Calcium (8.5-10.1) mg/dl Magnesium 1.8 (1.8-2.4) mg/dl Vitamin B12 416 (193-986) pg/ml Folate > 20.00 (>5.38) ng/ml TSH (0.300-4.500) uIu/ml Specimen Hemolysis Urine Color Yellow Urine Appearance Cloudy A (Clear) Urine pH 5.0 (4.5-7.5) Ur Specific [place] 1.012 (1.000-1.030) Urine Protein Trace H (Negative) Urine Glucose (UA) Negative (Negative) Urine Ketones Negative (Negative) Urine Blood 2+ H (Negative) Urine Nitrite Negative (Negative) Urine Bilirubin Negative (Negative) Urine Urobilinogen Negative (Negative) Ur Leukocyte Esterase Negative (Negative) Urine WBC (Auto) 5-10 H (0-5) /hpf Urine RBC (Auto) >30 H (0-4) /hpf U Hyaline Cast (Auto) >30 H (0-5) /lpf U Epithel Cells (Auto) >30 H (0-5) /lpf Urine Bacteria (Auto) 2+ H (Negative) 07/11/21 Range/Units 07:27 WBC (4.8-10.8) K/uL RBC (4.2-5.4) M/uL Hgb (12.0-16.0) g/dL Hct (37-47) % MCV (80-100) fL MCH (25-34) pg MCHC (32-36) g/dL Plt Count (130-400) K/uL Absolute Nucleated RBC (0-0) K/uL Nucleated RBC % (auto) % Sodium 141 (136-145) mmol/L Potassium 4.1 (3.5-5.1) mmol/L Chloride 101 (98-107) mmol/L Carbon Dioxide 38 H (21-32) mmol/L Anion Gap 2.0 L (3-11) BUN 46 H (7-18) mg/dl Creatinine 1.91 H (0.6-1.2) mg/dl Est Cr Clr Drug Dosing 23.5 ml/min Est GFR ( Amer) 27.6 ml/min Est GFR (Non-Af Amer) 23.8 ml/min BUN/Creatinine Ratio 23.9 H (10-20) Glucose 126 H (70-99) mg/dl Estimat Average Glucose mg/dl Hemoglobin A1c (4.5-5.6) % Calcium 9.3 (8.5-10.1) mg/dl Magnesium (1.8-2.4) mg/dl Vitamin B12 (193-986) pg/ml Folate (>5.38) ng/ml TSH (0.300-4.500) uIu/ml Specimen Hemolysis Urine Color Urine Appearance (Clear) Urine pH (4.5-7.5) Ur Specific [place] (1.000-1.030) Urine Protein (Negative) Urine Glucose (UA) (Negative) Urine Ketones (Negative) Urine Blood (Negative) Urine Nitrite (Negative) Urine Bilirubin (Negative) Urine Urobilinogen (Negative) Ur Leukocyte Esterase (Negative) Urine WBC (Auto) (0-5) /hpf Urine RBC (Auto) (0-4) /hpf U Hyaline Cast (Auto) (0-5) /lpf U Epithel Cells (Auto) (0-5) /lpf Urine Bacteria (Auto) (Negative) PG Care Time/CCT Total # of Minutes Spent Total Time Spent with Patient: Total time spent is greater than 50% in coordination of care (as documented) at patient's floor/unit and/or counseling patient: Coding Level of Care Code 45018 Subseq Hosp Care Lvl 3 Diagnoses Congestive heart failure I50.9 Heart failure chronicity: acute on chronic CKD (chronic kidney disease), stage III N18.3 Hyperlipidemia E78.5 Hypertension I10 AV block, 3rd degree I44.2 Aortic stenosis I35.0 Gout M10.9 Prediabetes R73.03 Mitral regurgitation I34.0 (1) Congestive heart failure Heart failure chronicity: acute on chronic
[2021-07-12] MEDS: BUMETANIDE 2 MG in SYRINGE 0 ML IV SCH ×2 (08:39→16:25)
[2021-07-12 08:50] LABS: Base Excess ABG 5.7 mEq/L (-9-1.8); HCO3 ABG 36 mmol/L (19-24); Oxygen Saturation ABG 94.2 % (90-95); PCO2 ABG 81 mmHg (35-46); PO2 ABG 77 mmHg (80-95); pH ABG 7.26 (7.35-7.45)
[2021-07-12 08:52] LABS: Allen Test Pos (Pos)
[2021-07-12 09:00] LABS: Albumin Level 3.1 gm/dl (3.4-5.0); Bilirubin Direct 0.8 mg/dl (0-0.2); Total Protein 6.6 gm/dl (6.4-8.2)
--- NOTE | 2021-07-12 09:56 | Psychiatric Consultation ---
Date of Consultation July 12, 2021 Impression / Recommendations Impression 81 yo woman with significant cardiac disease with CHF, multiple medical comorbidities, possible mild cognitive impairment and worsening mood in the context of medical problems and recent decompensation. Some of her mood changes could be due to some hypoactive delirium, especially with recent paranoia, so recommend stopping ativan which can make this worse and continuing to optimize management of her medical conditions. Her elevated PHQ-9 score is certainly consistent with depression-either MDD versus depression 2/2 medical conditions. Certainly depression can negatively impact cardiac outcomes and cardiac disease can be a significant risk factor for depression. Risk of self-harm is moderate given medical comorbidities and passive SI however she denies any plans or intent and given her significant medical comorbidities and her preference to avoid medications or therapy, palliative care to optimize medical management and comfort is felt to be most significant modifiable risk factor at this time for both acute and chronic risk. She is not felt to meet criteria for nor I do I believe she would benefit from inpatient psychiatric treatment at this time. Could consider trial of a stimulant like modafinil to see if this improves her energy and mood knowing this an off-label use for depression and given her cardiac history carries significant cardiac risks especially with her elevated QTc and mitral valve regurg. SSRI trial could be considered in the future if she becomes open to this knowing that her QTc would need to be monitored carefully. (1) Depression, unspecified: (2) Acute hypoactive delirium due to multiple etiologies: -Optimize management of medical conditions to reduce risk of delirium and improve mood, agree with palliative care involvement -Could consider off-label use of modafinil 100mg qd for 3-7 days to see if this improves energy and mood and if so could then consider further treatments such as SSRI trial or therapy if she's interested -Discontinue ativan as this can contribute to delirium Risk Factors Assessment : Yes Do You Have Access To A Gun?: No Health Problems: Yes Mental Health Diagnoses: No Substance Use Disorders: No Previous Attempt: No Family History of Suicide: No Previous Psychiatric Hospitalization: No Hopelessness: Yes Protective Factors Assessment Stable Relationships: Yes Supportive Family: Yes Good Rapport with Provider: Yes Psych History Identifying Data 81 yo woman with CHF, edema, afib, hearing loss, CKD stage III, HTN, HLD, possible cognitive impairment and pain who was admitted for CHF. Psychiatry was consulted for recommendations regarding depression. Chief Complaint mute History of Present Illness Gely was asleep this morning and though she woke to verbal prompts she then was mute throughout my attempted interview and was unable to or would not shake her head or engage in any non-verbal communication. She was noted to have nasal oxygen and appeared to have significant effort with breathing. Also spoke with her medical provider and reviewed chart which notes she has been expressing passive wishes to and declining care as well refusing offers to start any medications or receive therapeutic support to help with her mood. Therefore the majority of the history is taken from the psychiatric liason's interaction with her last night and from their collateral from discussion with her son from Fernando Guzmanuire's notes on 07/11/21: "Met with patient for initial interview. At first the patient was confused and stated to this RN "I'm so sorry Jarad (son's name), I love you". After orienting the patient to this RN and the purpose of the visit she became reality based and participative. Patient was agreeable to speak with this RN but seemed to become irritated at times during the interaction. She was unable to answer some of the questions asked of her because she was feeling tired. She made statements such as "I don't want to do this anymore" and "I'm ready to be done, I never thought my life would come to this" in the context of her health and medical disorders. She adamantly refused to entertain the idea of taking medications to improve her mood, thoughts, anxiety, etc. She stated "I'll only take a medication if it's for pain". Patient appeared to be tired and sad. When asked if she was feeling depressed lately she replied "That's a stupid question" followed by "I'm an 81 year old woman and didn't think that I would end up like this". She scored a 21 on the PHQ-9." "Per patient's son Jarad, the patient has been making statements of hopelessness. He said she has been making statements about conspiracy theories, that someone paid the other lady in a different room to wiliam on her, cameras were put up to wiliam on her in hospital room. Yesterday the patient told her sister who was visiting that there had been a service held for the patient because she was dying. All of these behaviors/thoughts are new onset. He is unsure what changed or why she has started acting this way. Per son the patient can feign tiredness to get out of doing things. They have no family history of mental health disorders or substance use. Son is unsure why the patient has been acting this way because the patient's medical condition is not worsening at this point. He feels that a "switch flipped" when the patient was admitted medically. He is very supportive and would like to be updated. Jarad's phone number is ." Past Psychiatric History Previous Psych History: none known Previous Psych Admissions: n/a Do You Have Access To A Gun?: No History of Previous Suicide Attempt: No Past Medication Trials: ativan 0.5 mg BID prn Allergies Allergy/AdvReac Type Severity Reaction Status Date / Time erythromycin base Allergy Mild Unknown Verified 06/15/21 14:14 doxycycline Allergy Unknown Unknown Verified 06/15/21 14:14 amoxicillin Allergy Verified 06/15/21 14:14 pregabalin [From Lyrica] Allergy Visual Verified 06/15/21 14:14 disturbance Home Medications Medication Instructions Recorded Confirmed Type atorvastatin 40 mg tablet 40 mg PO QPM 04/25/18 07/05/21 History tramadol 50 mg tablet 50 mg PO TID PRN #120 tab 10/08/20 07/05/21 Rx ergocalciferol (vitamin D2) 1,250 50,000 unit PO .COMPLEX #4 cap 10/21/20 07/05/21 Rx mcg (50,000 unit) capsule (Vitamin D2) metoprolol tartrate 100 mg tablet 100 mg PO BID #180 tab 05/05/21 07/05/21 Rx albuterol sulfate 90 mcg/actuation 2 puff INHALATION Q6H PRN #6.7 gm 05/25/21 07/05/21 Rx aerosol inhaler ipratropium 0.5 mg-albuterol 3 mg 3 ml INHALATION Q8H PRN #180 ml 05/25/21 07/05/21 Rx (2.5 mg base)/3 mL nebulization soln meclizine 25 mg tablet 25 mg PO TID PRN #30 tab 05/25/21 07/05/21 Rx apixaban 2.5 mg tablet (Eliquis) 2.5 mg PO BID #60 tab 06/01/21 07/05/21 Rx nystatin 100,000 unit/gram topical 1 applic TOPICAL TID #60 g 06/01/21 07/05/21 Rx powder Hospital Bed Home[facility] (Hospital [facility] ea 06/02/21 07/05/21 Rx Bed) lorazepam 0.5 mg tablet 0.5 mg PO BID PRN #60 tab 06/21/21 07/05/21 Rx levofloxacin 250 mg tablet 250 mg PO Q48H 10 Days #5 tab 06/28/21 07/05/21 Rx oxycodone 5 mg tablet 5 - 10 mg PO Q4H PRN #180 tab MDD 06/29/21 07/05/21 Rx 6 tabs in 24 hours allopurinol 100 mg tablet 200 mg PO QAM 07/05/21 07/05/21 History bumetanide 2 mg tablet 4 mg PO BID #120 tab 07/05/21 07/05/21 Rx cetirizine 10 mg tablet (Zyrtec) 10 mg PO DAILY 07/05/21 07/05/21 History omeprazole 20 mg capsule,delayed 20 mg PO QAM 07/05/21 07/05/21 History release potassium chloride 10 mEq 20 meq PO BID 07/05/21 07/05/21 History tablet,extended release (Klor-Con) baclofen 10 mg tablet 10 mg PO TID PRN #30 tab 07/06/21 Rx Family History none known Substance Abuse History none known Personal History Living Arrangements: Home (in retirement community, son recently moved in to help her) Marital Status: Beliefs That Will Affect Care: None Patient History Medical History Acute on chronic systolic CHF (congestive heart failure) Cardiac murmur Chronic back pain Congestive heart failure GERD (gastroesophageal reflux disease) Hx of fracture of wrist LEFT Hyperlipidemia Hypertension 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 ear Morbid obesity Osteoarthritis Pacemaker LAST CHECK 3 MONTHS AGO Retinal artery occlusion, branch Sensorineural hearing loss of both ears SOB (shortness of breath) on exertion 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 Brother Myocardial infarction Father Myocardial infarction Other No family history of adverse response to anesthesia No family history of bleeding disorder Denies family history of Ovarian cancer Prostate cancer Breast cancer Colorectal cancer Social History Smoking Status: Never smoker Second Hand Exposure: No; Hx Alcohol Use: No Hx Substance Use: No Preferred Language: Thai Communication Ability: Effective Visual Impairment: No Limitations Hearing Ability: Use of Hearing Aid Training Officer Required: No Beliefs That Will Affect Care: None marital status: Current Living Situation: Alone Current Living Situation Comment: son lives 2 miles away current occupational status: retired current occupation: was a homemaker Feels Safe at Home: Yes Childhood Exposure to Second-Hand Smoke: No Dental Care, Regularly: No Physical Activity Frequency: Does not Exercise Seatbelt Use: never Sunscreen Use: No Assistive Devices: Oxygen - Continuous Physical Exam Psychiatric: Orientation: alert Apperance: appropriately dressed and appropriately groomed Eye Contact: + fair eye contact Motor Behavior: + psychomotor retardation Speech: + mute Affect: + flat affect Mood: + depressed mood Judgement: + limited judgement Vital Signs (Past 24 Hours): Last Vital Signs Temp 36.6 C 07/12/21 07:56 Pulse 69 07/12/21 07:56 Resp 18 07/12/21 07:56 BP 111/57 L 07/12/21 07:56 Pulse Ox 96 07/12/21 07:56 Review of Systems Unobtainable due to cognitive status Results & Data (PSY) Laboratory Results Diagnostic Findings Cardiac echo-prosthetic mitral valve with regurg; EF 65-70% per report EKG on 07/05/21 with QTc 483 ms Medications Administered Acetaminophen (Acetaminophen 325 Mg Tab) 650 mg PO Q4H PRN PRN Reason: Pain or Fever Stop: 08/04/21 23:38 Last Admin: 07/11/21 01:42 Dose: 650 mg Documented by: [id number] Admin: 07/09/21 13:43 Dose: 650 mg Documented by: [id number] Admin: 07/08/21 20:47 Dose: 650 mg Documented by: [id number] Admin: 07/06/21 14:20 Dose: 650 mg Documented by: [id number] Allopurinol (Allopurinol 100 Mg Tab) 200 mg PO QAM YUNI Stop: 08/05/21 08:59 Last Admin: 07/11/21 08:43 Dose: 200 mg Documented by: [id number] Admin: 07/10/21 08:17 Dose: 200 mg Documented by: [id number] Admin: 07/09/21 09:07 Dose: 200 mg Documented by: [id number] Admin: 07/08/21 08:33 Dose: 200 mg Documented by: [id number] Admin: 07/07/21 07:57 Dose: 200 mg Documented by: [id number] Admin: 07/06/21 08:13 Dose: 200 mg Documented by: [id number] Apixaban (Apixaban 2.5 Mg Tab) 2.5 mg PO BID YUNI Stop: 08/04/21 23:38 Last Admin: 07/11/21 19:36 Dose: 2.5 mg Documented by: [id number] Admin: 07/11/21 08:42 Dose: 2.5 mg Documented by: [id number] Admin: 07/10/21 20:24 Dose: 2.5 mg Documented by: [id number] Admin: 07/10/21 08:18 Dose: 2.5 mg Documented by: [id number] Admin: 07/09/21 20:11 Dose: 2.5 mg Documented by: [id number] Admin: 07/09/21 09:07 Dose: 2.5 mg Documented by: [id number] Admin: 07/08/21 20:52 Dose: 2.5 mg Documented by: [id number] Admin: 07/08/21 08:33 Dose: 2.5 mg Documented by: [id number] Admin: 07/07/21 20:31 Dose: 2.5 mg Documented by: [id number] Admin: 07/07/21 07:56 Dose: 2.5 mg Documented by: [id number] Admin: 07/06/21 20:58 Dose: 2.5 mg Documented by: [id number] Admin: 07/06/21 08:13 Dose: 2.5 mg Documented by: [id number] Admin: 07/06/21 00:20 Dose: 2.5 mg Documented by: [id number] Atorvastatin Calcium (Atorvastatin 40 Mg Tab) 40 mg PO QPM [facility] Stop: 08/04/21 23:38 Last Admin: 07/11/21 19:36 Dose: 40 mg Documented by: [id number] Admin: 07/10/21 20:24 Dose: 40 mg Documented by: [id number] Admin: 07/09/21 20:11 Dose: 40 mg Documented by: [id number] Admin: 07/08/21 20:52 Dose: 40 mg Documented by: [id number] Admin: 07/07/21 20:31 Dose: 40 mg Documented by: [id number] Admin: 07/06/21 20:59 Dose: 40 mg Documented by: [id number] Admin: 07/06/21 00:20 Dose: 40 mg Documented by: [id number] Baclofen (Baclofen 10 Mg Tab) 10 mg PO TID PRN PRN Reason: leg cramping Stop: 08/04/21 23:38 Last Admin: 07/07/21 20:32 Dose: 10 mg Documented by: [id number] Admin: 07/06/21 14:20 Dose: 10 mg Documented by: [id number] Cetirizine HCl (Cetirizine Hcl 10 Mg Tablet) 10 mg PO DAILY [facility] Stop: 08/05/21 08:59 Last Admin: 07/11/21 08:43 Dose: 10 mg Documented by: [id number] Admin: 07/10/21 08:18 Dose: 10 mg Documented by: [id number] Admin: 07/09/21 09:07 Dose: 10 mg Documented by: [id number] Admin: 07/08/21 08:33 Dose: 10 mg Documented by: [id number] Admin: 07/07/21 07:57 Dose: 10 mg Documented by: [id number] Admin: 07/06/21 08:13 Dose: 10 mg Documented by: [id number] Bumetanide 2 mg/ Syringe 8 mls @ 4 mls/min IV BID@0900,1700 YUNI Stop: 08/05/21 08:59 Last Admin: 07/12/21 08:39 Dose: 4 mls/min Documented by: [id number] Admin: 07/11/21 15:44 Dose: 4 mls/min Documented by: [id number] Admin: 07/11/21 08:42 Dose: 4 mls/min Documented by: [id number] Admin: 07/10/21 17:31 Dose: 4 mls/min Documented by: [id number] Admin: 07/10/21 08:17 Dose: 4 mls/min Documented by: [id number] Admin: 07/09/21 16:55 Dose: 4 mls/min Documented by: [id number] Admin: 07/09/21 09:06 Dose: 4 mls/min Documented by: [id number] Admin: 07/08/21 18:02 Dose: 4 mls/min Documented by: [id number] Admin: 07/08/21 08:32 Dose: 4 mls/min Documented by: [id number] Admin: 07/07/21 17:54 Dose: 4 mls/min Documented by: [id number] Admin: 07/07/21 07:57 Dose: 4 mls/min Documented by: [id number] Admin: 07/06/21 17:42 Dose: 4 mls/min Documented by: [id number] Admin: 07/06/21 08:12 Dose: 4 mls/min Documented by: [id number] Meclizine HCl (Meclizine Hcl 25 Mg Tab) 25 mg PO TID PRN PRN Reason: dizziness Stop: 08/05/21 00:24 Last Admin: 07/09/21 09:07 Dose: 25 mg Documented by: [id number] Admin: 07/09/21 05:44 Dose: 25 mg Documented by: [id number] Admin: 07/08/21 08:33 Dose: 25 mg Documented by: [id number] Metoprolol Tartrate (Metoprolol Tartrate 100 Mg Tab) 100 mg PO BID YUNI Stop: 08/04/21 23:38 Last Admin: 07/11/21 19:36 Dose: 100 mg Documented by: [id number] Admin: 07/11/21 08:42 Dose: 100 mg Documented by: [id number] Admin: 07/10/21 20:24 Dose: 100 mg Documented by: [id number] Admin: 07/10/21 08:17 Dose: 100 mg Documented by: [id number] Admin: 07/09/21 20:11 Dose: 100 mg Documented by: [id number] Admin: 07/09/21 09:06 Dose: 100 mg Documented by: [id number] Admin: 07/08/21 20:52 Dose: 100 mg Documented by: [id number] Admin: 07/08/21 08:33 Dose: 100 mg Documented by: [id number] Admin: 07/07/21 20:31 Dose: 100 mg Documented by: [id number] Admin: 07/07/21 07:57 Dose: 100 mg Documented by: [id number] Admin: 07/06/21 21:02 Dose: 100 mg Documented by: [id number] Admin: 07/06/21 08:13 Dose: 100 mg Documented by: [id number] Admin: 07/06/21 00:20 Dose: 100 mg Documented by: [id number] Oxycodone HCl (Oxycodone Hcl Ir 5 Mg Tab (Immediate Release)) 5 mg PO Q8H PRN PRN Reason: pain Stop: 07/19/21 23:38 Last Admin: 07/12/21 03:42 Dose: 5 mg Documented by: [id number] Admin: 07/11/21 15:43 Dose: 5 mg Documented by: [id number] Pantoprazole Sodium (Pantoprazole 40 Mg Tab) 40 mg PO QAM YUNI Stop: 08/05/21 08:59 Last Admin: 07/11/21 08:43 Dose: 40 mg Documented by: [id number] Admin: 07/10/21 08:18 Dose: 40 mg Documented by: [id number] Admin: 07/09/21 09:08 Dose: 40 mg Documented by: [id number] Admin: 07/08/21 08:33 Dose: 40 mg Documented by: [id number] Admin: 07/07/21 07:57 Dose: 40 mg Documented by: [id number] Admin: 07/06/21 08:13 Dose: 40 mg Documented by: [id number] Potassium Chloride (Potassium Chloride Crtab 20 Meq Tabcr) 20 meq PO BID YUNI Stop: 08/04/21 23:38 Last Admin: 07/11/21 19:36 Dose: 20 meq Documented by: [id number] Admin: 07/11/21 08:43 Dose: 20 meq Documented by: [id number] Admin: 07/10/21 20:24 Dose: 20 meq Documented by: [id number] Admin: 07/10/21 08:18 Dose: 20 meq Documented by: [id number] Admin: 07/09/21 21:46 Dose: Not Given Documented by: [id number] Admin: 07/09/21 09:30 Dose: Not Given Documented by: [id number] Admin: 07/08/21 20:57 Dose: Not Given Documented by: [id number] Admin: 07/08/21 08:50 Dose: 20 meq Documented by: [id number] Admin: 07/07/21 20:32 Dose: 20 meq Documented by: [id number] Admin: 07/07/21 07:57 Dose: 20 meq Documented by: [id number] Admin: 07/06/21 20:58 Dose: 20 meq Documented by: [id number] Admin: 07/06/21 08:13 Dose: 20 meq Documented by: [id number] Admin: 07/06/21 00:20 Dose: 20 meq Documented by: [id number] Tramadol HCl (Tramadol Hcl 50 Mg Tablet) 50 mg PO TID PRN PRN Reason: pain Stop: 08/04/21 23:38 Last Admin: 07/10/21 19:22 Dose: 50 mg Documented by: [id number] Admin: 07/10/21 11:00 Dose: 50 mg Documented by: [id number] Admin: 07/06/21 13:18 Dose: 50 mg Documented by: [id number] Coding Level of Care Code 40077 Inpt Consult Level 2 Diagnoses Depression, unspecified F32.A Acute hypoactive delirium due to multiple etiologies F05
[2021-07-12] MEDS: allopurinoL 100 MG TAB PO SCH (10:10)
[2021-07-12] MEDS: APIXABAN 2.5 MG TAB PO SCH (10:10)
[2021-07-12] MEDS: PANTOprazole 40 MG TAB PO SCH (10:11)
[2021-07-12] MEDS: POTASSIUM CHLORIDE CRTAB 20 MEQ TABCR PO SCH (10:11)
[2021-07-12] MEDS: CETIRIZINE HCL 10 MG TABLET PO SCH (10:11)
[2021-07-12] MEDS: METOPROLOL TARTRATE 100 MG TAB PO SCH (10:11)
--- NOTE | 2021-07-12 13:16 | Palliative Care Consultation ---
Date of Consultation July 12, 2021 Assessment & Plan (1) Palliative care encounter: Gely Guerin is an 81 year old female who presented to the [facility] with lower extremity edema. He has a PMH that includes: CHF, HTN, HLD, CKDIII, and Atrial Fibrillation. An ECHO resulted severe MR and severe aortic insufficiency. She has had an MVR in 2012. This individual was at home on hospice and then when she continued to retain fluid, her son revoked for evaluation at the hospital. Palliative Medicine was consulted to discuss overall goals of care. I saw the patient who was not interactive with me and appeared to be using diaphragmatic muscles for breathing. She did open her eyes when talked to, but no meaningful interaction. I called her son Jarad and he came up to the patients room discuss her goals of care. After lengthy discussion, decision was made to forgo further medical intervention and would rather focus on her comfort at this time. All non essential meds discontinued. As patient may not pass over the next few days, although its expected, goal for inpatient hospice now and if stablized, work towards [facility] over the next few days. Dilaudid, Libradoinul, and Ativan ordered for patient. Discussed case with hospitalist and nursing. Palliative will follow. (2) CHF (congestive heart failure): Heart failure chronicity: acute on chronic Heart failure type: unspecified Qualified Code(s): I50.9 - Heart failure, unspecified (3) Congestive heart failure: Heart failure chronicity: acute on chronic History of Present Illness Reason for Consultation: goals of care Requesting Physician: Nora Maldonado PA-C Attending Physician: Angelique Huertas MD History of Present Illness Gely Guerin is an 81 year old female who presented to the [facility] with lower extremity edema. He has a PMH that includes: CHF, HTN, HLD, CKDIII, and Atrial Fibrillation. An ECHO resulted severe MR and severe aortic insufficiency. She has had an MVR in 2012. This individual was at home on hospice and then when she continued to retain fluid, her son revoked for evaluation at the hospital. Palliative Medicine was consulted to discuss overall goals of care. Please see A/P for further details. Thanks for involving Palliative Medicine with this pt. Allergies Allergy/AdvReac Type Severity Reaction Status Date / Time erythromycin base Allergy Mild Unknown Verified 06/15/21 14:14 doxycycline Allergy Unknown Unknown Verified 06/15/21 14:14 amoxicillin Allergy Verified 06/15/21 14:14 pregabalin [From Lyrica] Allergy Visual Verified 06/15/21 14:14 disturbance Home Medications Medication Instructions Recorded Confirmed Type atorvastatin 40 mg tablet 40 mg PO QPM 04/25/18 07/05/21 History tramadol 50 mg tablet 50 mg PO TID PRN #120 tab 10/08/20 07/05/21 Rx ergocalciferol (vitamin D2) 1,250 50,000 unit PO .COMPLEX #4 cap 10/21/20 07/05/21 Rx mcg (50,000 unit) capsule (Vitamin D2) metoprolol tartrate 100 mg tablet 100 mg PO BID #180 tab 05/05/21 07/05/21 Rx albuterol sulfate 90 mcg/actuation 2 puff INHALATION Q6H PRN #6.7 gm 05/25/21 07/05/21 Rx aerosol inhaler ipratropium 0.5 mg-albuterol 3 mg 3 ml INHALATION Q8H PRN #180 ml 05/25/21 07/05/21 Rx (2.5 mg base)/3 mL nebulization soln meclizine 25 mg tablet 25 mg PO TID PRN #30 tab 05/25/21 07/05/21 Rx apixaban 2.5 mg tablet (Eliquis) 2.5 mg PO BID #60 tab 06/01/21 07/05/21 Rx nystatin 100,000 unit/gram topical 1 applic TOPICAL TID #60 g 06/01/21 07/05/21 Rx powder Hospital Bed Homecare (Hospital [facility] ea 06/02/21 07/05/21 Rx Bed) lorazepam 0.5 mg tablet 0.5 mg PO BID PRN #60 tab 06/21/21 07/05/21 Rx levofloxacin 250 mg tablet 250 mg PO Q48H 10 Days #5 tab 06/28/21 07/05/21 Rx oxycodone 5 mg tablet 5 - 10 mg PO Q4H PRN #180 tab MDD 06/29/21 07/05/21 Rx 6 tabs in 24 hours allopurinol 100 mg tablet 200 mg PO QAM 07/05/21 07/05/21 History bumetanide 2 mg tablet 4 mg PO BID #120 tab 07/05/21 07/05/21 Rx cetirizine 10 mg tablet (Zyrtec) 10 mg PO DAILY 07/05/21 07/05/21 History omeprazole 20 mg capsule,delayed 20 mg PO QAM 07/05/21 07/05/21 History release potassium chloride 10 mEq 20 meq PO BID 07/05/21 07/05/21 History tablet,extended release (Klor-Con) baclofen 10 mg tablet 10 mg PO TID PRN #30 tab 07/06/21 Rx Patient History Medical History (Updated 07/12/21 @ 21:49 by OLGA Cosby) Acute on chronic systolic CHF (congestive heart failure) Cardiac murmur Chronic back pain Congestive heart failure GERD (gastroesophageal reflux disease) Hx of fracture of wrist LEFT Hyperlipidemia Hypertension 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 ear Morbid obesity Osteoarthritis Pacemaker LAST CHECK 3 MONTHS AGO Palliative care encounter Retinal artery occlusion, branch Sensorineural hearing loss of both ears SOB (shortness of breath) on exertion 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 Beliefs That Will Affect Care: None marital status: Current Living Situation: Alone Current Living Situation Comment: son lives 2 miles away current occupational status: retired current occupation: was a homemaker Feels Safe at Home: Yes Childhood Exposure to Second-Hand Smoke: No Dental Care, Regularly: No Physical Activity Frequency: Does not Exercise Seatbelt Use: never Sunscreen Use: No Assistive Devices: Oxygen - Continuous Review of Systems Review of Systems: Unobtainable due to cognitive status Physical Exam Constitutional: + frail appearing ENMT: Mouth: + dry oral mucous membranes Respiratory: + uses accessory muscles Auscultation: + diminished lung sounds Cardiovascular: Rate/Rhythm: regular rate and regular rhythm Heart Sounds: + murmur Extremities: normal capillary refill Gastrointestinal (Abdomen): Inspection/Auscultation: abdomen normal to inspection Skin: + pallor Psychiatric: Orientation: alert Results & Data ([facility]) Vital Signs (Past 12 Hours) Vital Signs Temp Pulse Resp BP Pulse Ox 07/12/21 11:45 36.6 C 97 H 18 110/61 96 07/12/21 07:56 36.6 C 69 18 111/57 L 96 07/12/21 04:00 36.5 C 77 24 124/77 95 PG Care Time/CCT Total # of Minutes Spent Total Time Spent with Patient: Total time spent is greater than 50% in coordination of care (as documented) at patient's floor/unit and/or counseling patient: 70 minutes Coding Level of Care Code 64516 Initial Inpt Care Lvl 3 Diagnoses Palliative care encounter Z51.5 CHF (congestive heart failure) I50.9 Heart failure chronicity: acute on chronic Heart failure type: unspecified Congestive heart failure I50.9 Heart failure chronicity: acute on chronic Time Spent (min) 70
[2021-07-12] MEDS: HYDROmorphone INJ 0.5 MG/0.5 ML SYR IV PRN ×3 (16:43→22:45)
--- NOTE | 2021-07-12 17:02 | Discharge Summary ---
Date of Service July 12, 2021 Admission HPI Per Admitting Provider Gely Guerin has a past medical history of heart failure following with the heart failure clinic, HTN, HLD, valvular disease, CKD III, atrial fibrillation on Eliquis presenting with worsening lower extremity edema. The swelling in her lower legs have been worsening over several weeks. Her left leg has started draining 2 weeks ago and her right leg started to drain on Sunday with the left leg worsening again one day prior. She follows with the heart failure clinic and was sent in for IV diuresis. She has not had any changes in her diet lately. She notes that she has not been eating as much lately but is eating canned soup among other things. She notes that she has had trouble laying down due to trouble breathing. She did note slight blood in her sputum, no sore throat or URI symptoms. Denies fever, chills, urinary symptoms. She was on hospice, but has since been discharged and but would not like aggressive measures undertaken. Heart failure notes indicate that she has refused ECHO in the past. ED course: Bumex 2mg IV Admission Exam Per Admitting Provider Constitutional: well developed, well nourished and + edematous; no acute distress Eyes: PERRL, conjunctivae normal, anicteric sclerae ENMT: external ear and nose normal, oropharynx normal Neck: normal visual inspection Respiratory: normal respiratory effort, lungs clear to auscultation Cardiovascular: Rate/Rhythm: + irregularly irregular Extremities: + edema (significant edema with swelling, chronic venous stasis changes) Gastrointestinal (Abdomen): normal bowel sounds, soft, nontender, no hepatosplenomegaly Skin: - dark skin over the lower legs bilatera lly Neurologic: no focal motor deficits Psychiatric: Orientation: alert and oriented x 3 Genitourinary: OB Exam Monitor Tracing: + variable decelerations Principal Diagnosis CHF, Hypercapnic Respiratory Failure, Comfort Care Discharge Exam Constitutional: lethargic, frail appearing, awakens to name and knows in hospital but states she wants "the plug pulled" Eyes anicteric, EOMI neck without thyromegaly, trachea midline without deviation, JVD unable to be appreciated Resp: poor inspiratory effort, belly breathing noted at times, 96% on 4L, diminished in the bases with associated crackles, faint exp wheezing noted CV: irregularly irregular, systolic ejection murmur with radiation to apex, harsh diastolic 5/6 murmur with radiation left sternal border, +3-4 b/l LE edema with venous stasis changes GI: +BS, distended, non-tender : mensah with yellow urine draining Psych: alert but not oriented to place/time, worsening confusion/lethargy, stating "wanting to pull the plug" Neuro: no focal deficit, no facial droop or slurred speech appreciated Discharge Data Allergies Allergy/AdvReac Type Severity Reaction Status Date / Time erythromycin base Allergy Mild Unknown Verified 06/15/21 14:14 doxycycline Allergy Unknown Unknown Verified 06/15/21 14:14 amoxicillin Allergy Verified 06/15/21 14:14 pregabalin [From Lyrica] Allergy Visual Verified 06/15/21 14:14 disturbance Consultations 07/05/21 19:35 ED Decision to Admit Stat 07/05/21 23:39 Consult Cardiology Routine 07/11/21 11:14 Consult Psychiatry Routine 07/11/21 14:40 Consult Palliative Care Routine Hospital Course (1) Congestive heart failure: This is an 81 yo F w/ pMHx. heart failure with preserved EF, following with the heart failure clinic, HTN, HLD, valvular disease, CKD III, atrial fibrillation on Eliquis presenting with lower extremity edema. Acute on chronic exacerbation of heart failure with preserved EF * 2 D ECHO showed preserved EF of 60-65%, note with severe mitral regurgitation and severe aortic insufficiency (Acute Mitral Regurgitation 2012 secondary to Flail Anterior Leaflet s/p 27 mm Biocor Bioprosthetic MVR 2012, Aortic Stenosis s/p [address] Giovanny Trifecta Bioprosthetic AVR 2012 replacement...son notes that one of the valves was had known error and did not elect to undergo repeat valve surgery) * --> Of note, had been arranged on hospice after last cardiology visit per discussion with son which was revoked about a week ago as they had not known about being signed up and assumed Dr Smith referred given no plans for valve repair/replacement * Fluid restriction 1L/day * Daily weights/I&O -- net negative 4.5L * Continued on bumex 2mg IV BID (got extra dose overnight 07/11) AMS * No focal deficits and has been ongoing over weeks-months per son * --> had been on "hospice and given lots of morphine" which has since been discontinued. * --> She does take ativan but only 0.5mg AT NIGHT --> changed in system * DOES NOT TAKE TRAMADOL --> DISCONTINUED. * TAKES OXYCODONE PRN -- up to 4 of the 5mg tablets daily but usually only take 2 tablets on regular basis -- will change to Q8H prn * Will check B12/folate -- no deficiency. TSH wnl * Checked UA - +bacteria, but appears infected. Urine cx pin-point re- incubating. * --> Has been afebrile/no elevation in WBC. No urinary symptoms reported prior to admission or in days past * Worsening confusion/lethargy AM 07/11, ABG obtained which showed worsening hypoxemic/hypercapnic respiratory failure * --> REFUSING BiPAP and wanting to be made comfortable. * -- plan of care discussed with son. does not feel able to take home on hospice * Palliative consulted -->comfort care, plans for [facility] to start tomorrow and made patient comfort care * Moved to 3rd floor , supplemetal O2 to maintain sats, dilaudid prn, geovanna alvarado rn secretions. add low dose ativan Q1h if needed Afib, permanent * is rate controlled ([id number] 5+ on Eliquis) * --> Continue Eliquis 2.5mg BID, metoprolol 100mg BID Prediabetic * BSGs acceptable HTN/HLD * BP 110/61 * continue Metoprolol with holding parameters * continue Atorvastatin CKD stage 3, VANNESA on admission * BUN/Cr improving with diuretics * Cr elevated to 2.7 on admission, improved to 1.91 --> 2.28 currently (got extra dose Bumex last evening) * continued Bumex 2mg BID, other medications discontinued Anemia * --> Hgb 13.8 now, possible lab error vs dilutional from volume overload * B12/folate wnl GERD --Continue protonix while inpatient, substituting for omeprazole as taking FURNITURE SALESPERSON Anxiety/Depression --> worsening and patient stating she wants to (prior on hospice as above) --> decreased ativan to 0.5mg HS SCHEDULED as taking FURNITURE SALESPERSON. Not agreeable to alternative medications at this time Psych consulted to further discuss alternative options given ativan may not be best choice given confusion as above consideration for modafinil 100mg QD x 3-7 days for possible delirium, however holding off starting this as moving towards comfort Code status : changed to DNR per discussion with patient and son 07/11 (2) CKD (chronic kidney disease), stage III: (3) Hyperlipidemia: (4) Hypertension: (5) AV block, 3rd degree: (6) Aortic stenosis: (7) Gout: (8) Prediabetes: (9) Mitral regurgitation: all life sustaining medications discontinued this afternoon bumex continued for volume overload/comfort diladid IV prn, ativan prn, robinul prn secretions moved to 3rd floor and [facility] hospice to accept under [facility] for tomorrow Will d/c and re-admit to [facility] in AM when they resume care Total Time Total Time Spent Total Time Spent (In Minutes): 65 Discharge Plan Discharge Items Patient Disposition: Hospice - Medical Facility Reason For Visit: LEGS SWOLLEN, POSS FLUID IN LEGS, DR REFERRED Discharge Diagnosis: Hospice, CHF Activity: As commented below Non-emergency contact: Primary Care Provider Call non-emergency contact if: you have any medication questions Follow-up/Referrals: Ilan Elaine III, MD [Primary Care Provider] - Virginia Carballo PA-C [Physician Vocational Horticulture Instructor] - 07/18/21 2:00 pm Diet: Regular Addtl Attending Provider Instructions: You are being discharged to general inpatient hospice. Pending Studies at Discharge: No Stand-Alone Forms: My [facility] Skilled Items Patient informed of condition?: Yes DNR: Yes Discharge Level of Care: Other Communicable Disease: No Discharge Prognosis: Deteriorating Lines: Peripheral IV Urinary Catheter: Yes Medications and DC Order Prescriptions: Discontinued ergocalciferol (vitamin D2) [Vitamin D2] 1,250 mcg (50,000 unit) capsule 50,000 unit PO .COMPLEX Qty: 4 RF: 11 meclizine 25 mg tablet 25 mg PO TID PRN (Reason: dizziness) Qty: 30 RF: 1 albuterol sulfate 90 mcg/actuation HFA aerosol inhaler 2 puff INHALATION Q6H PRN (Reason: Wheezing) Qty: 6.7 RF: 3 ipratropium-albuterol 0.5 mg-3 mg(2.5 mg base)/3 mL solution for nebulization 3 ml INHALATION Q8H PRN (Reason: shortness of breath) Qty: 180 RF: 11 nystatin 100,000 unit/gram powder 1 applic topical TID Qty: 60 RF: 5 (DME) Hospital Bed Misc See Rx Instructions .Route Qty: 1 RF: 0 lorazepam 0.5 mg tablet 0.5 mg PO BID PRN (Reason: anxiety) Qty: 60 RF: 5 levofloxacin 250 mg tablet 250 mg PO Q48H 10 Days Qty: 5 RF: 0 oxycodone 5 mg tablet 5 - 10 mg PO Q4H MDD 6 tabs in 24 hours PRN (Reason: pain) Qty: 180 RF: 0 bumetanide 2 mg tablet 4 mg PO BID Qty: 120 RF: 2 baclofen 10 mg tablet 10 mg PO TID PRN (Reason: leg cramping) Qty: 30 RF: 0 Eliquis 2.5 mg tablet 2.5 mg PO BID Qty: 60 RF: 2 tramadol 50 mg tablet 50 mg PO TID PRN (Reason: pain) Qty: 120 RF: 3 metoprolol tartrate 100 mg tablet 100 mg PO BID Qty: 180 RF: 3 atorvastatin 40 mg Tablet 40 mg PO QPM RF: 0 potassium chloride [Klor-Con 10] 10 mEq tablet extended release 20 meq PO BID RF: 0 allopurinol 100 mg tablet 200 mg PO QAM RF: 0 omeprazole 20 mg capsule,delayed release(DR/EC) 20 mg PO QAM RF: 0 cetirizine [Zyrtec] 10 mg Tablet 10 mg PO DAILY RF: 0 Discharge Orders: Discharge Order (Routine); Ordered 07/13/21 Ordered By: Nora Aguillon/Other Patient Handouts: Prediabetes, 5 Steps for Eating Healthier Admission Data Admit Date/Time: 07/05/21 21:28 Attending Provider: Angelique Huertas Admit Provider: Glen Rodney Primary Care Provider: Ilan Elaine III Other Providers: [facility] ; Jeancarlos [facility] ; [facility] ; [facility],Referral Center ; Binh Chiu ; Ayush Mary ; Alysa Nash ; Odette Amos ; Aminata Jordan ; Cirilo Hugo ; Ida Winchester Supervising Physician Co-Signing Physician Notes PA Supervision Note: I did not personally see or examine the patient today, but I verified all sims points of ARVIN Maldonado's assessment and plan with the following exceptions/additions: None Coding Level of Care Code None Diagnoses Congestive heart failure I50.9 Heart failure chronicity: acute on chronic CKD (chronic kidney disease), stage III N18.3 Hyperlipidemia E78.5 Hypertension I10 AV block, 3rd degree I44.2 Aortic stenosis I35.0 Gout M10.9 Prediabetes R73.03 Mitral regurgitation I34.0
[2021-07-12] MEDS: LORazepam 0.25 MG/0.5 ML VIAL IV PRN (17:17)
[2021-07-12] MEDS: GLYCOPYRROLATE 0.2 MG/ML VIAL IV PRN (22:55)
[2021-07-13] MEDS: HYDROmorphone INJ 0.5 MG/0.5 ML SYR IV PRN ×2 (02:14→05:01)
[2021-07-13] MEDS: LORazepam 0.25 MG/0.5 ML VIAL IV PRN (02:31)
[2021-07-13] MEDS: GLYCOPYRROLATE 0.2 MG/ML VIAL IV PRN ×2 (02:51→06:05)
[2021-07-13] MEDS ORDERED: HYDROmorphone INJ 0.5 MG/0.5 ML SYR IV PRN (08:27)
[2021-07-13] MEDS ORDERED: HYDROmorphone INJ 0.5 MG/0.5 ML SYR ONE (08:37)
[2021-07-13] MEDS: BUMETANIDE 2 MG in SYRINGE 0 ML IV SCH (08:40)
--- NOTE | 2021-07-13 09:36 | History & Physical Report ---
Date of Service July 13, 2021 Assessment & Plan (1) Congestive heart failure: Plan: This is an 81 yo F w/ pMHx. heart failure with preserved EF, following with the heart failure clinic, HTN, HLD, valvular disease, CKD III, atrial fibrillation on Eliquis presenting with lower extremity edema. Acute on chronic exacerbation of heart failure with preserved EF * 2 D ECHO showed preserved EF of 60-65%, note with severe mitral regurgitation and severe aortic insufficiency (Acute Mitral Regurgitation 2012 secondary to Flail Anterior Leaflet s/p 27 mm Biocor Bioprosthetic MVR 2012, Aortic Stenosis s/p [address] Giovanny Trifecta Bioprosthetic AVR 2012 replacement...son notes that one of the valves was had known error and did not elect to undergo repeat valve surgery) * --> Of note, had been arranged on hospice after last cardiology visit per discussion with son which was revoked about a week ago as they had not known about being signed up and assumed Dr Smith referred given no plans for valve repair/replacement * Fluid restriction 1L/day * Daily weights/I&O -- net negative 4.5L * Continued on bumex 2mg IV BID (got extra dose overnight 07/11) AMS * No focal deficits and has been ongoing over weeks-months per son * --> had been on "hospice and given lots of morphine" which has since been discontinued. * --> She does take ativan but only 0.5mg AT NIGHT --> changed in system * DOES NOT TAKE TRAMADOL --> DISCONTINUED. * TAKES OXYCODONE PRN -- up to 4 of the 5mg tablets daily but usually only take 2 tablets on regular basis -- will change to Q8H prn * Will check B12/folate -- no deficiency. TSH wnl * Checked UA - +bacteria, but appears infected. Urine cx pin-point re- incubating. * --> Has been afebrile/no elevation in WBC. No urinary symptoms reported prior to admission or in days past * Worsening confusion/lethargy AM 07/11, ABG obtained which showed worsening hypoxemic/hypercapnic respiratory failure * --> REFUSING BiPAP and wanting to be made comfortable. * -- plan of care discussed with son. does not feel able to take home on hospice * Palliative consulted -->comfort care, plans for GIP to start tomorrow and made patient comfort care * Moved to 3rd floor , supplemetal O2 to maintain sats, dilaudid prn, robinul prn secretions. add low dose ativan Q1h if needed Afib, permanent * is rate controlled ([id number] 5+ on Eliquis) * --> Continue Eliquis 2.5mg BID, metoprolol 100mg BID Prediabetic * BSGs acceptable HTN/HLD * BP 110/61 * continue Metoprolol with holding parameters * continue Atorvastatin CKD stage 3, VANNESA on admission * BUN/Cr improving with diuretics * Cr elevated to 2.7 on admission, improved to 1.91 --> 2.28 currently (got extra dose Bumex last evening) * continued Bumex 2mg BID, other medications discontinued Anemia * --> Hgb 13.8 now, possible lab error vs dilutional from volume overload * B12/folate wnl GERD --Continue protonix while inpatient, substituting for omeprazole as taking BELTING CUTTER Anxiety/Depression --> worsening and patient stating she wants to (prior on hospice as above) --> decreased ativan to 0.5mg HS SCHEDULED as taking BELTING CUTTER. Not agreeable to alternative medications at this time Psych consulted to further discuss alternative options given ativan may not be best choice given confusion as above consideration for modafinil 100mg QD x 3-7 days for possible delirium, however holding off starting this as moving towards comfort Code status : changed to DNR per discussion with patient and son 07/11 (2) CKD (chronic kidney disease), stage III: (3) Hyperlipidemia: (4) Hypertension: (5) AV block, 3rd degree: (6) Aortic stenosis: (7) Gout: (8) Prediabetes: (9) Mitral regurgitation: Plan: all life sustaining medications discontinued this afternoon bumex continued for volume overload/comfort diladid IV prn, ativan prn, robinul prn secretions moved to 3rd floor and [facility] hospice to accept under G[facility] for tomorrow Will d/c and re-admit to GIP in AM when they resume care Admission and Anticipated Discharge Date Admission Date: July 05, 2021 History of Present Illness Chief Complaint: SOB, CHF exacerbation Primary Care Provider: Ilan Guerin has a past medical history of heart failure following with the heart failure clinic, HTN, HLD, valvular disease, CKD III, atrial fibrillation on Eliquis presenting with worsening lower extremity edema. The swelling in her lower legs have been worsening over several weeks. Her left leg has started draining 2 weeks ago and her right leg started to drain on Sunday with the left leg worsening again one day prior. She follows with the heart failure clinic and was sent in for IV diuresis. She has not had any changes in her diet lately. She notes that she has not been eating as much lately but is eating canned soup among other things. She notes that she has had trouble laying down due to trouble breathing. She did note slight blood in her sputum, no sore throat or URI symptoms. Denies fever, chills, urinary symptoms. She was on hospice, but has since been discharged and but would not like aggressive measures undertaken. Heart failure notes indicate that she has refused ECHO in the past. ED course: Bumex 2mg IV (1) Congestive heart failure: This is an 81 yo F w/ pMHx. heart failure with preserved EF, following with the heart failure clinic, HTN, HLD, valvular disease, CKD III, atrial fibrillation on Eliquis presenting with lower extremity edema. Acute on chronic exacerbation of heart failure with preserved EF * 2 D ECHO showed preserved EF of 60-65%, note with severe mitral regurgitation and severe aortic insufficiency (Acute Mitral Regurgitation 2012 secondary to Flail Anterior Leaflet s/p 27 mm Biocor Bioprosthetic MVR 2012, Aortic Stenosis s/p [address] Giovanny Trifecta Bioprosthetic AVR 2012 replacement...son notes that one of the valves was had known error and did not elect to undergo repeat valve surgery) * --> Of note, had been arranged on hospice after last cardiology visit per discussion with son which was revoked about a week ago as they had not known about being signed up and assumed Dr Smith referred given no plans for valve repair/replacement * Fluid restriction 1L/day * Daily weights/I&O -- net negative 4.5L * Continued on bumex 2mg IV BID (got extra dose overnight 07/11) AMS * No focal deficits and has been ongoing over weeks-months per son * --> had been on "hospice and given lots of morphine" which has since been discontinued. * --> She does take ativan but only 0.5mg AT NIGHT --> changed in system * DOES NOT TAKE TRAMADOL --> DISCONTINUED. * TAKES OXYCODONE PRN -- up to 4 of the 5mg tablets daily but usually only take 2 tablets on regular basis -- will change to Q8H prn * Will check B12/folate -- no deficiency. TSH wnl * Checked UA - +bacteria, but appears infected. Urine cx pin-point re- incubating. * --> Has been afebrile/no elevation in WBC. No urinary symptoms reported prior to admission or in days past * Worsening confusion/lethargy AM 07/11, ABG obtained which showed worsening hypoxemic/hypercapnic respiratory failure * --> REFUSING BiPAP and wanting to be made comfortable. * -- plan of care discussed with son. does not feel able to take home on hospice * Palliative consulted -->comfort care, plans for GIP to start tomorrow and made patient comfort care * Moved to 3rd floor , supplemental O2 to maintain sats, dilaudid prn, robinul prn secretions. add low dose ativan Q1h if needed --> GIP in AM Afib, permanent * is rate controlled ([id number] 5+ on Eliquis) * --> Continue Eliquis 2.5mg BID, metoprolol 100mg BID Prediabetic * BSGs acceptable HTN/HLD * BP 110/61 * continue Metoprolol with holding parameters * continue Atorvastatin CKD stage 3, VANNESA on admission * BUN/Cr improving with diuretics * Cr elevated to 2.7 on admission, improved to 1.91 --> 2.28 currently (got extra dose Bumex last evening) * continued Bumex 2mg BID, other medications discontinued Anemia * --> Hgb 13.8 now, possible lab error vs dilutional from volume overload * B12/folate wnl GERD --Continue protonix while inpatient, substituting for omeprazole as taking BELTING CUTTER Anxiety/Depression --> worsening and patient stating she wants to (prior on hospice as above) --> decreased ativan to 0.5mg HS SCHEDULED as taking BELTING CUTTER. Not agreeable to alternative medications at this time Psych consulted to further discuss alternative options given ativan may not be best choice given confusion as above consideration for modafinil 100mg QD x 3-7 days for possible delirium, however holding off starting this as moving towards comfort Code status : changed to DNR per discussion with patient and son 07/11 (2) CKD (chronic kidney disease), stage III: (3) Hyperlipidemia: (4) Hypertension: (5) AV block, 3rd degree: (6) Aortic stenosis: (7) Gout: (8) Prediabetes: (9) Mitral regurgitation: all life sustaining medications discontinued this afternoon bumex continued for volume overload/comfort diladid IV prn, ativan prn, robinul prn secretions moved to 3rd floor and [facility] hospice to accept under [facility] for tomorrow Will d/c and re-admit to GIP in AM when they resume care Allergies Allergy/AdvReac Type Severity Reaction Status Date / Time erythromycin base Allergy Mild Unknown Verified 06/15/21 14:14 doxycycline Allergy Unknown Unknown Verified 06/15/21 14:14 amoxicillin Allergy Verified 06/15/21 14:14 pregabalin [From Lyrica] Allergy Visual Verified 06/15/21 14:14 disturbance Past Med/Surg History Medical History (Updated 07/13/21 @ 12:56 by Nora Maldonado PA-C) Acute on chronic systolic CHF (congestive heart failure) Cardiac murmur Chronic back pain Congestive heart failure GERD (gastroesophageal reflux disease) Hx of fracture of wrist LEFT Hyperlipidemia Hypertension 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 ear Morbid obesity Osteoarthritis Pacemaker LAST CHECK 3 MONTHS AGO Palliative care encounter Retinal artery occlusion, branch Sensorineural hearing loss of both ears SOB (shortness of breath) on exertion 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 Brother Myocardial infarction Father Myocardial infarction Other No family history of adverse response to anesthesia No family history of bleeding disorder Denies family history of Ovarian cancer Prostate cancer Breast cancer Colorectal cancer Social History Smoking Status: Never smoker Second Hand Exposure: No; Hx Alcohol Use: No Hx Substance Use: No Preferred Language: Yakut Communication Ability: Effective Visual Impairment: No Limitations Hearing Ability: Use of Hearing Aid Auriculotherapist Required: No Beliefs That Will Affect Care: None marital status: Current Living Situation: Alone Current Living Situation Comment: son lives 2 miles away current occupational status: retired current occupation: was a homemaker Feels Safe at Home: Yes Childhood Exposure to Second-Hand Smoke: No Dental Care, Regularly: No Physical Activity Frequency: Does not Exercise Seatbelt Use: never Sunscreen Use: No Assistive Devices: Oxygen - Continuous Physical Exam Physical Exam: Constitutional: lethargic, frail appearing, awakens to name and knows in hospital but states she wants "the plug pulled" Eyes anicteric, EOMI neck without thyromegaly, trachea midline without deviation, JVD unable to be appreciated Resp: poor inspiratory effort, belly breathing noted at times, 96% on 4L, diminished in the bases with associated crackles, faint exp wheezing noted CV: irregularly irregular, systolic ejection murmur with radiation to apex, harsh diastolic 5/6 murmur with radiation left sternal border, +3-4 b/l LE edema with venous stasis changes GI: +BS, distended, non-tender : mensah with yellow urine draining Psych: alert but not oriented to place/time, worsening confusion/lethargy, stating "wanting to pull the plug" Neuro: no focal deficit, no facial droop or slurred speech appreciated Code Status & VTE Plan VTE Prophylaxis Plan VTE Prophylaxis will be ordered: Yes Supervising Physician Co-Signing Physician Notes PA Supervision Note: I did not personally see or examine the patient today, but I verified all sims points of ARVIN Maldonado's assessment and plan with the following exceptions/additions: None PG Care Time/CCT Total # of Minutes Spent Total Time Spent with Patient: Total time spent is greater than 50% in coordination of care (as documented) at patient's floor/unit and/or counseling patient: Coding Level of Care Code None Diagnoses Congestive heart failure I50.9 Heart failure chronicity: acute on chronic CKD (chronic kidney disease), stage III N18.3 Hyperlipidemia E78.5 Hypertension I10 AV block, 3rd degree I44.2 Aortic stenosis I35.0 Gout M10.9 Prediabetes R73.03 Mitral regurgitation I34.0 (1) Congestive heart failure Heart failure chronicity: acute on chronic
== END 2021-07-13 09:28 | disposition hospice, inpatient (51) | DRG 291 ==
LOC: ED 16:06 → EDINP 21:28 → SUATTDRO 21:28 → EDINP 23:40 → 2S 07-06 19:54 → 3E 07-12 15:59
DX: Z88.0 Allergy status to penicillin; F05 Delirium due to known physiological condition; Z68.41 Body mass index [BMI] 40.0-44.9, adult; Z51.5 Encounter for palliative care; Z66 Do not resuscitate; I49.5 Sick sinus syndrome; F41.9 Anxiety disorder, unspecified; E83.42 Hypomagnesemia; I44.2 Atrioventricular block, complete; N18.30 Chronic kidney disease, stage 3 unspecified; Z79.01 Long term (current) use of anticoagulants; E78.5 Hyperlipidemia, unspecified; I50.33 Acute on chronic diastolic (congestive) heart failure; Z88.1 Allergy status to other antibiotic agents; Z79.899 Other long term (current) drug therapy; R73.03 Prediabetes; K21.9 Gastro-esophageal reflux disease without esophagitis; Z83.3 Family history of diabetes mellitus; J43.9 Emphysema, unspecified; Z86.73 Personal history of transient ischemic attack (TIA), and cerebral infarction without residual deficits; E66.01 Morbid (severe) obesity due to excess calories; J96.92 Respiratory failure, unspecified with hypercapnia; Z95.4 Presence of other heart-valve replacement; I13.0 Hypertensive heart and chronic kidney disease with heart failure and stage 1 through stage 4 chronic kidney disease, or unspecified chronic kidney disease; M10.9 Gout, unspecified; Z95.0 Presence of cardiac pacemaker; I48.21 Permanent atrial fibrillation; F32.A Depression, unspecified; Z82.49 Family history of ischemic heart disease and other diseases of the circulatory system; I08.0 Rheumatic disorders of both mitral and aortic valves; Z88.8 Allergy status to other drugs, medicaments and biological substances

== ENCOUNTER 2021-07-13 09:39 | Inpatient (IN) ==
[2021-07-13] MEDS ORDERED: GLYCOPYRROLATE 0.2 MG/ML VIAL IV PRN (09:59)
[2021-07-13] MEDS ORDERED: LORazepam 0.5 MG/1 ML VIAL IV PRN (09:59)
[2021-07-13] MEDS ORDERED: HYDROmorphone INJ 0.5 MG/0.5 ML SYR IV PRN (09:59)
[2021-07-13] MEDS ORDERED: HYDROmorphone INJ 1 MG/ML SYRINGE IV PRN (12:21)
--- NOTE | 2021-07-13 13:03 | Hospitalist Progress Note ---
Date of Service July 13, 2021 Assessment & Plan (1) Need for comfort care: Plan: 81 yo F w/ pMHx. heart failure , following with the heart failure clinic, HTN, HLD, valvular disease, CKD III, atrial fibrillation on Eliquis presenting with lower extremity edema. and worsening SOB 2 D ECHO showed preserved EF of 60-65%, note with severe mitral regurgitation and severe aortic insufficiency (Acute Mitral Regurgitation 2012 secondary to F ashley Anterior Leaflet s/p 27 mm Biocor Bioprosthetic MVR 2012, Aortic Stenosis s/p [address] Giovanny Trifecta Bioprosthetic AVR 2012 replacement...son notes that one of the valves was had known error and did not elect to undergo repeat valve surgery) Had been on bumex 2mg IV BID and net negative 4.5L however worsening respiratory distress/hypercapnia and increased oxygen requirements and requiring BiPAP but refused UA negative for UTI, B12/tsh wnl. No evidence for infection leading to worsening cog status and per discussion with son at bedside, patient has exhibited the signs for declined for "last weeks-days" in his hospice information packet when looking back Previously on hospice but then revoked -- poor transition likely leading to worsening status as some of her life sustaining medications had been stopped for ~2 weeks before canceling. Had been following with CHF clinic and plans for transit[facility] to [facility] but came to hospital Palliative consulted, discussed at length with patient and made DNR per patient and family wishes Arranged for GIP inpatient through [facility] --> Dilaudid prn -- increased to 1mg as needed for increased belly breathing/resp distress --> Ativan prn agitation Robinul prn secretions All other life sustaining medications discontinued Admission and Anticipated Discharge Date Admission Date: July 13, 2021 Supervising Physician Co-Signing Physician Notes PA Supervision Note: I personally saw and examined the patient. I verified all sims points and agree with ARVIN Maldonado with the following exceptions and/or additions: none Subjective patient evaluated this morning with family at bedside given dilaudid 0.5mg this morning, increased from 0.25mg and discussed with family patient seems to be in resp distress, mouth/belly breathing. asked RN to administer oxymask if tolerated for comfort and additional dose of increased pain control [facility] hospice in to see patient this morning as well and to have continued follow up Review of Systems Review of Systems: Unobtainable due to cognitive status Physical Exam Physical Exam: lethargic, non-responsive trachea midline, no deviation, mm dry resp: poor inspiratory effort, tachypneic, labored breathing, increased work, diminished in the bases with associated crackles, faint exp wheezing on 6L NC (asked to place Oxymask), accessory muscle use CV: irregularly irregular, systolic ejection murmur with radiation to apex, harsh diastolic 5/6 murmur with radiation left sternal border, +3-4 b/l LE edema with venous stasis changes GI: +BS, distended, non-tender : mensah with yellow urine draining Psych: not alert/oriented PG Care Time/CCT Total # of Minutes Spent Total Time Spent with Patient: Total time spent is greater than 50% in coordination of care (as documented) at patient's floor/unit and/or counseling patient: Coding Level of Care Code 75748 Subseq Hosp Care Lvl 2 Diagnoses Need for comfort care
--- NOTE | 2021-07-13 15:06 | Death Pronouncement Note ---
Date of Service July 13, 2021 Pronouncement Note Admission Date Admission Date: July 13, 2021 Contributing Factors (1) Need for comfort care: Additional Data Attending physician: Angelique Huertas MD
--- NOTE | 2021-07-13 15:06 | Death Pronouncement Note ---
Date of Service July 13, 2021 Pronouncement Note Admission Date Admission Date: July 13, 2021 Date and Time of Date of : 07/13/21 Time of : 13:25 PCOD Preliminary cause of : Congestive heart failure Contributing Factors (1) Need for comfort care: Hospital Course Hospital Course: Se discharge summary Additional Data Confirmation of : no pulse, no respirations, no heart sounds and pupils fixed and dilated Family: at bedside Attending/PCP notified?: Yes Attending physician: Angelique Huertas MD Was code activated?: No Autopsy requested?: No Coding Level of Care Code None Diagnoses Need for comfort care
--- NOTE | 2021-07-13 15:07 | Discharge Summary ---
Date of Service July 13, 2021 Admission HPI Per Admitting Provider Chief Complaint: SOB, CHF exacerbation Primary Care Provider: Ilan Elaine MD Gely Guerin has a past medical history of heart failure following with the heart failure clinic, HTN, HLD, valvular disease, CKD III, atrial fibrillation on Eliquis presenting with worsening lower extremity edema. The swelling in her lower legs have been worsening over several weeks. Her left leg has started draining 2 weeks ago and her right leg started to drain on Sunday with the left leg worsening again one day prior. She follows with the heart failure clinic and was sent in for IV diuresis. She has not had any changes in her diet lately. She notes that she has not been eating as much lately but is eating canned soup among other things. She notes that she has had trouble laying down due to trouble breathing. She did note slight blood in her sputum, no sore throat or URI symptoms. Denies fever, chills, urinary symptoms. She was on hospice, but has since been discharged and but would not like aggressive measures undertaken. Heart failure notes indicate that she has refused ECHO in the past. ED course: Bumex 2mg IV (1) Congestive heart failure: This is an 81 yo F w/ pMHx. heart failure with preserved EF, following with the heart failure clinic, HTN, HLD, valvular disease, CKD III, atrial fibrillation on Eliquis presenting with lower extremity edema. Acute on chronic exacerbation of heart failure with preserved EF * 2 D ECHO showed preserved EF of 60-65%, note with severe mitral regurgitation and severe aortic insufficiency (Acute Mitral Regurgitation 2012 secondary to Flail Anterior Leaflet s/p 27 mm Biocor Bioprosthetic MVR 2012, Aortic Stenosis s/p [address] Giovanny Trifecta Bioprosthetic AVR 2012 replacement...son notes that one of the valves was had known error and did not elect to undergo repeat valve surgery) * --> Of note, had been arranged on hospice after last cardiology visit per discussion with son which was revoked about a week ago as they had not known about being signed up and assumed Dr Smith referred given no plans for valve repair/replacement * Fluid restriction 1L/day * Daily weights/I&O -- net negative 4.5L * Continued on bumex 2mg IV BID (got extra dose overnight 12/13)AMS * No focal deficits and has been ongoing over weeks-months per son * --> had been on "hospice and given lots of morphine" which has since been discontinued. * --> She does take ativan but only 0.5mg AT NIGHT --> changed in system * DOES NOT TAKE TRAMADOL --> DISCONTINUED. * TAKES OXYCODONE PRN -- up to 4 of the 5mg tablets daily but usually only take 2 tablets on regular basis -- will change to Q8H prn * Will check B12/folate -- no deficiency. TSH wnl * Checked UA - +bacteria, but appears infected. Urine cx pin-point re- incubating. * --> Has been afebrile/no elevation in WBC. No urinary symptoms reported prior to admission or in days past * Worsening confusion/lethargy AM 07/11, ABG obtained which showed worsening hypoxemic/hypercapnic respiratory failure * --> REFUSING BiPAP and wanting to be made comfortable. * -- plan of care discussed with son. does not feel able to take home on hospice * Palliative consulted -->comfort care, plans for GIP to start today and made patient comfort care * Moved to 3rd floor , supplemental O2 to maintain sats, dilaudid prn, robinul prn secretions. add low dose ativan Q1h if needed --> GIP Afib, permanent * is rate controlled ([id number] 5+ on Eliquis) * --> Continue Eliquis 2.5mg BID, metoprolol 100mg BIDPrediabetic * BSGs acceptableHTN/HLD * BP 110/61 * continue Metoprolol with holding parameters * continue AtorvastatinCKD stage 3, VANNESA on admission * BUN/Cr improving with diuretics * Cr elevated to 2.7 on admission, improved to 1.91 --> 2.28 currently (got extra dose Bumex last evening) * continued Bumex 2mg BID, other medications discontinuedAnemia * --> Hgb 13.8 now, possible lab error vs dilutional from volume overload * B12/folate wnlGERD --Continue protonix while inpatient, substituting for omeprazole as taking [employer] Anxiety/Depression --> worsening and patient stating she wants to (prior on hospice as above) --> decreased ativan to 0.5mg HS SCHEDULED as taking [employer]. Not agreeable to alternative medications at this time Psych consulted to further discuss alternative options given ativan may not be best choice given confusion as above consideration for modafinil 100mg QD x 3-7 days for possible delirium, however holding off starting this as moving towards comfort Code status : changed to DNR per discussion with patient and son 07/11 (2) CKD (chronic kidney disease), stage III: (3) Hyperlipidemia: (4) Hypertension: (5) AV block, 3rd degree: (6) Aortic stenosis: (7) Gout: (8) Prediabetes: (9) Mitral regurgitation: all life sustaining medications discontinued this afternoon bumex continued for volume overload/comfort diladid IV prn, ativan prn, robinul prn secretions moved to 3rd floor and [facility] hospice to accept under [facility] for tomorrow Will d/c and re-admit to [facility] in AM when they resume care Admission Exam (Per Admitting) Constitutional Constitutional: lethargic, frail appearing, awakens to name and knows in hospital but states she wants "the plug pulled" Eyes anicteric, EOMI neck without thyromegaly, trachea midline without deviation, JVD unable to be appreciated Resp: poor inspiratory effort, belly breathing noted at times, 96% on 4L, diminished in the bases with associated crackles, faint exp wheezing noted CV: irregularly irregular, systolic ejection murmur with radiation to apex, harsh diastolic 5/6 murmur with radiation left sternal border, +3-4 b/l LE edema with venous stasis changes GI: +BS, distended, non-tender : mensah with yellow urine draining Psych: alert but not oriented to place/time, worsening confusion/lethargy, stating "wanting to pull the plug" Neuro: no focal deficit, no facial droop or slurred speech appreciated Hospital Course (1) Need for comfort care: 81 yo F w/ pMHx. heart failure , following with the heart failure clinic, HTN, HLD, valvular disease, CKD III, Atrial fibrillation on Eliquis presenting with lower extremity edema. and worsening SOB 2 D ECHO showed preserved EF of 60-65%, note with severe mitral regurgitation and severe aortic insufficiency (Acute Mitral Regurgitation 2012 secondary to Flail Anterior Leaflet s/p 27 mm Biocor Bioprosthetic MVR 2012, Aortic Stenosis s/p [address] Giovanny Trifecta Bioprosthetic AVR 2013 replacement...son noted that one of the valves was had known error and did not elect to undergo repeat valve surgery) Had been on Bumex 2mg IV BID and net negative 4.5L however worsening respiratory distress/hypercapnia and increased oxygen requirements and requiring BiPAP but refused UA negative for UTI, B12/tsh wnl. No evidence for infection leading to worsening cog status and per discussion with son at bedside, patient has exhibited the signs for declined for "last weeks-days" in his hospice information packet when looking back Previously on hospice but then revoked -- poor transition likely leading to worsening status as some of her life sustaining medications had been stopped for ~2 weeks before canceling. Had been following with CHF clinic and plans for transition to Bumex but came to hospital Palliative consulted, discussed at length with patient and made DNR per patient and family wishes Arranged for GIP inpatient through [facility] --> Dilaudid prn -- increased to 1mg as needed for increased belly breathing/respiratory distress --> Ativan prn agitation Robinul prn secretions All other life sustaining medications discontinued Patient son and sister at bedside -- son just left after giving the 1mg dose. Patient appeared comfortable and ceased to breathe at 13:25. (2) CHF (congestive heart failure): 2nd to valvular heart disease, ECHO with preserved EF. Had been following with CHF clinic, plans to switch to Bumex but presented to hospital prior to starting provided Bumex 2mg IV BID without much improvement in symptoms, and patient with worsening respiratory failure/hypercapnia and had been refusing to utilize BiPAP, leading to worsening AMS. Palliative consulted, and I discussed with patient in days prior, and son daily multiple times daily, about transition to hospice and that I felt the patient would pass in the next 1-2 days but that we would ease this transition. (3) Severe mitral valve regurgitation: (4) Severe aortic insufficiency: (5) Atrial fibrillation, permanent: Eliquis BID, discontinued when transitioned to comfort (6) Leg swelling: (7) Anticoagulant long-term use: (8) Cardiac pacemaker: (9) Valvular heart disease: (10) CKD (chronic kidney disease), stage III: Cr steadily improving with diuretics but then increased again. no further treatment and transitioned to comfort measures (11) Hypertension: (12) Hyperlipidemia: Supervising Physician Co-Signing Physician Notes PA Supervision Note: I did not personally see or examine the patient today, but I verified all sims points of ARVIN Maldonado's assessment and plan with the following exceptions/additions: None
== END 2021-07-13 16:50 | disposition expired | DRG 951 ==
LOC: 3E 09:39